=== PATIENT | male | born 1945 | race Hispanic/Latino ===

== ENCOUNTER 2018-07-20 09:42 | Outpatient (CLI) | payer MEDICARE | END 2018-07-20 09:43 | disposition home or self-care (01) | LOC: RAD 09:42 ==

== ENCOUNTER 2018-08-16 10:42 | Outpatient (CLI) | payer MEDICARE | END 2018-08-16 10:43 | disposition home or self-care (01) | LOC: LAB 10:42 ==

== ENCOUNTER 2018-09-29 13:58 | Inpatient (IN) | payer MEDICARE ==
--- NOTE | 2018-09-29 14:58 | ED PDOC ---
Arrival/HPI - General Chief Complaint: Wound Check Time Seen by Provider: 09/29/18 14:37 Historian: Patient - History of Present Illness Narrative History of Present Illness (Text): 09/29/18 14:55 A 73 year old male, whose past medical history includes diabetes and hypothyroidism, presents to the emergency department for further evaluation of right heel ulcer. patient was advised by his healthcare science specialist to come into the emergency department for further evaluation of the foot ulcer and more aggressive antibiotic treatment. Patient notes that he was able to ambulate into the emergency department today. He denies fevers, chills, headache, dizziness, chest pain, shortness of breath, dyspnea on exertion, cough, abdominal pain, nausea, vomiting, diarrhea, back pain, neck pain, urinary/bowel changes, or any other complaint. Prime Minister: Dr. Gallo Time/Duration: Other (Today) Symptom Onset: Gradual Symptom Course: Unchanged Activities at Onset: Rest, Light Context: Home Past Medical History - Provider Review Nursing Documentation Reviewed: Yes Primary Care Provider: Edie Gallo - Infectious Disease Hx of Infectious Diseases: None - Tetanus Immunization Tetanus Immunization: Unknown - Cardiac Hx Pacemaker: No - Pulmonary Hx Bronchitis: Yes - Neurological Hx Paralysis: No - HEENT Hx Cataracts: Yes - Endocrine/Metabolic Hx Hyperthyroidism: Yes - Hematological/Oncological Hx Blood Transfusions: No - Musculoskeletal/Rheumatological Hx Musculoskeletal Disorders: Yes - Gastrointestinal Hx Gastrointestinal Disorders: No - Genitourinary/Gynecological Hx Genitourinary Disorders: No - Psychiatric Hx Depression: No Hx Emotional Abuse: No Hx Physical Abuse: No Hx Substance Use: No - Surgical History Hx Cataract Extraction: Yes Other/Comment: right heel sx- removal of calcium spur - Anesthesia Hx Anesthesia: Yes Hx Anesthesia Reactions: No Hx Malignant Hyperthermia: No - Suicidal Assessment Feels Threatened In Home Enviroment: No Family/Social History - Physician Review Nursing Documentation Reviewed: Yes Family/Social History: No Known Family HX Smoking Status: Never Smoked Hx Alcohol Use: No Hx Substance Use: No Hx Substance Use Treatment: No Allergies/Home Meds Allergies/Adverse Reactions: Allergies No Known Allergies Allergy (Verified 09/29/18 14:31) Home Medications: Home Meds Medication Instructions Recorded Confirmed Glyburide/Metformin HCl 1 tab PO BID 01/06/12 09/29/18 [Glyburide/Metformin 5 mg-500 mg] Levothyroxine Sodium 0.075 mg PO DAILY 01/06/12 09/29/18 [Levothyroxine] Review of Systems - Physician Review All systems were reviewed & negative as marked: Yes - Review of Systems Constitutional: absent: Fevers, Night Sweats Respiratory: absent: SOB, Cough Cardiovascular: absent: Chest Pain, WHITE Gastrointestinal: absent: Abdominal Pain, Stool Changes, Diarrhea, Nausea, Vomi ting Genitourinary Male: absent: Urinary Output Changes Musculoskeletal: absent: Back Pain, Neck Pain Skin: Other (Right heel ulcer) Neurological: absent: Headache, Dizziness Physical Exam Vital Signs Reviewed: Yes Vital Signs Temp Pulse Resp BP Pulse Ox 09/29/18 14:26 98.3 F 81 18 165/89 H 98 Temperature: Afebrile Blood Pressure: Hypertensive Pulse: Regular Respiratory Rate: Normal Appearance: Positive for: Well-Appearing, Non-Toxic, Comfortable Pain Distress: None Mental Status: Positive for: Alert and Oriented X 3 Medical Decision Making ED Course and Treatment: 09/29/18 14:57 Impression: A 73 year old male presents to the emergency department for further evaluation of right foot ulcer and more agressive antibiotics, advised by Dr. Gallo to come in for evaluation. Plan: -- Right Ankle X-Ray -- Blood Culture -- Labs -- Vancomycin -- Reassess and disposition Prior Visits: Notes and results from previous visits were reviewed. Progress Notes: 09/29/18 15:25: Discussed case with someone in Dr. Gallo's office who state patient can be admitted to her service. Will admit once X- ray and Labs are back. 09/29/18 18:07 Right Foot X-Ray shows: IMPRESSION: No radiographic evidence of acute osteomyelitis. 09/29/18 19:04 Spoke to Resident and Dr. Carson and resident, who will come to evaluate patient. - Lab Interpretations I have reviewed the lab results: Yes - RAD Interpretation Diesel Machinist: Radiologist - Scribe Statement The provider has reviewed the documentation as recorded by the Ac Redd Provider Scribe Attestation: All medical record entries made by the Scribe were at my direction and personally dictated by me. I have reviewed the chart and agree that the record accurately reflects my personal performance of the history, physical exam, medical decision making, and the department course for this patient. I have also personally directed, reviewed, and agree with the discharge instructions and disposition. Disposition/Present on Arrival - Present on Arrival Any Indicators Present on Arrival: No History of DVT/PE: No History of Uncontrolled Diabetes: No Urinary Catheter: No History of Decub. Ulcer: No History Surgical Site Infection Following: None - Disposition Have Diagnosis and Disposition been Completed?: Yes Diagnosis: Heel ulcer, Cellulitis Disposition: HOSPITALIZED Disposition Time: 17:27 Patient Plan: Admission Condition: FAIR
[2018-09-29] MEDS ORDERED: Vancomycin 500 mg Inj IVPB ONE (15:03)
[2018-09-29] MEDS ORDERED: Vancomycin 1.5 GM in Sodium Chloride 0.9% 500 ML IVPB ONE (15:15)
[2018-09-29 15:40] LABS: BASO # 0.04 K/mm3 (0.0-2.0); BASO % 0.6 % (0.0-3.0); EOS # 0.1 (0.0-0.7); HEMOGLOBIN 13.3 g/dL (14.0-18.0); LYMPH # 1.5 (1.2-3.4); LYMPH % 22.6 % (22.0-35.0); MEAN CELL VOLUME 88.6 fl (80.0-105.0); MEAN CORPUSCULAR HEMOGLOBIN 29.8 pg (25.0-35.0); MEAN CORPUSCULAR HGB CONC 33.7 g/dl (31.0-37.0); MEAN PLATELET VOLUME 9.4 fl (7.0-11.0); MONO # 0.5 (0.1-0.6); MONO % 7.5 % (1.0-6.0); RBC 4.46 10^6/uL (3.5-6.1); WHITE BLOOD COUNT 6.6 10^3/uL (4.5-11.0)
[2018-09-29 16:02] LABS: ALB/GLOB RATIO 1.2 (1.1-1.8); ALBUMIN 4.1 g/dL (3.0-4.8); ALT/SGPT 24 U/L (7-56); AST/SGOT 19 U/L (17-59); BLOOD UREA NITROGEN 18 mg/dL (7-21); CALCIUM 9.2 mg/dL (8.4-10.5); GFR NON-AFRICAN AMERICAN > 60
[2018-09-29] MEDS ORDERED: Sodium Chloride 0.9% 1,000 ML IV STA (17:27)
--- NOTE | 2018-09-29 18:11 | RAD ---
Date of service: 09/29/2018 PROCEDURE: Right Foot Radiographs. HISTORY: r/o osteo COMPARISON: None. TECHNIQUE: 3 views obtained. FINDINGS: BONES: Normal. No fracture. JOINTS: Normal. SOFT TISSUES: Soft tissue swelling/lower extremity edema. OTHER FINDINGS: None. IMPRESSION: No radiographic evidence of acute osteomyelitis.
--- NOTE | 2018-09-29 20:34 | CP.PCM.HP ---
<Emanuel Blue - Last Filed: 09/29/18 20:38> History of Present Illness - History of Present Illness History of Present Illness: 73 year old male with past medical history of hypothyroidism, DM2, and PVD presents to the hospital after being sent in by podiatry. Patient states he has had right heel ulcer for the past several months. Patient has been following with Dr. Gallo, who recommended patient come into the hospital for further wound care and antibiotics. Patient states there has been discharge from his wound. Patient also admits to numbness and tingling in his right foot. Patient states he is compliant with his medications. Patient previously had foot MRI several months ago which demonstrated possible bone bruise/fracture with less likely chance of osteomylelitis. Patient denies chest pain, shortness of breath, nausea, vomiting, diarrhea, fever, chills. Medical Hx: hypothyroidism, DM2, and PVD Surgical Hx: B/l cataracts, pilonidal cyst, ventral hernia repair Family Hx: CAD, DM, Multiple malignancies (unaware of specifics) Social Hx: Denies tobacco, alcohol, or illicit drug use. Uses a cane for ambulation. Medications: Glyburide/Metformin, Levothyroxine Allergies: NKDA PMD: [place] Present on Admission - Present on Admission Any Indicators Present on Admission: No Review of Systems - Review of Systems Review of Systems: 12 point ROS as per HPI, otherwise negative Past Patient History - Infectious Disease Hx of Infectious Diseases: None - Tetanus Immunizations Tetanus Immunization: Unknown - Past Social History Smoking Status: Never Smoked - CARDIAC Hx Pacemaker: No - PULMONARY Hx Bronchitis: Yes - NEUROLOGICAL Hx Paralysis: No - HEENT Hx Cataracts: Yes - ENDOCRINE/METABOLIC Hx Hyperthyroidism: Yes - HEMATOLOGICAL/ONCOLOGICAL Hx Blood Transfusions: No - MUSCULOSKELETAL/RHEUMATOLOGICAL Hx Musculoskeletal Disorders: Yes - GASTROINTESTINAL Hx Gastrointestinal Disorders: No - GENITOURINARY/GYNECOLOGICAL Hx Genitourinary Disorders: No - PSYCHIATRIC Hx Depression: No Hx Emotional Abuse: No Hx Physical Abuse: No Hx Substance Use: No - SURGICAL HISTORY Hx Cataract Extraction: Yes Other/Comment: right heel sx- removal of calcium spur - ANESTHESIA Hx Anesthesia: Yes Hx Anesthesia Reactions: No Hx Malignant Hyperthermia: No Meds Allergies/Adverse Reactions: Allergies Allergy/AdvReac Type Severity Reaction Status Date / Time No Known Allergies Allergy Verified 09/29/18 14:31 Physical Exam - Constitutional Appears: Non-toxic, No Acute Distress - Head Exam Head Exam: ATRAUMATIC, NORMAL INSPECTION, NORMOCEPHALIC - Eye Exam Eye Exam: EOMI, Normal appearance - ENT Exam ENT Exam: Mucous Membranes Moist, Normal Exam - Respiratory Exam Respiratory Exam: Clear to Auscultation Bilateral, NORMAL BREATHING PATTERN. absent: Rales, Rhonchi, Wheezes - Cardiovascular Exam Cardiovascular Exam: RRR, +S1, +S2 - GI/Abdominal Exam GI & Abdominal Exam: Normal Bowel Sounds, Soft. absent: Tenderness - Extremities Exam Extremities exam: Negative for: calf tenderness, pedal edema Additional comments: Right foot heel ulcer. Draining pus. Bandaged. - Neurological Exam Neurological exam: Alert, CN II-XII Intact, Oriented x3 - Psychiatric Exam Psychiatric exam: Normal Affect, Normal Mood - Skin Skin Exam: Dry, Normal Color, Warm Results - Vital Signs Recent Vital Signs: Last Vital Signs Temp 98.3 F 09/29/18 18:15 Pulse 68 09/29/18 18:15 Resp 18 09/29/18 18:15 BP 158/64 H 09/29/18 18:15 Pulse Ox 100 09/29/18 18:15 - Labs Result Diagrams: 09/29/18 15:30 09/29/18 15:30 Labs: Laboratory Results - last 24 hr 09/29/18 09/29/18 15:30 15:30 WBC 6.6 RBC 4.46 Hgb 13.3 L Hct 39.5 L MCV 88.6 MCH 29.8 MCHC 33.7 RDW 13.0 Plt Count 295 MPV 9.4 Neut % (Auto) 67.3 Lymph % (Auto) 22.6 [place] % (Auto) 7.5 H Eos % (Auto) 2.0 Baso % (Auto) 0.6 Lymph # (Auto) 1.5 [place] # (Auto) 0.5 Eos # (Auto) 0.1 Baso # (Auto) 0.04 Absolute Neuts (auto) 4.42 Sodium 136 Potassium 5.0 Chloride 100 Carbon Dioxide 22 Anion Gap 19 BUN 18 Creatinine 0.8 Est GFR ( Amer) > 60 Est GFR (Non-Af Amer) > 60 Random Glucose 318 H* Calcium 9.2 Total Bilirubin 0.6 AST 19 ALT 24 Alkaline Phosphatase 142 H Total Protein 7.6 Albumin 4.1 Globulin 3.4 Albumin/Globulin Ratio 1.2 Assessment & Plan - Assessment and Plan (Free Text) Plan: 73 year old male with past medical history of hypothyroidism, DM2, and PVD presents to the hospital with right diabetic heel ulcer. Foot X-ray negative for any acute process. Patient will be evaluated by ID and Podiatry. 1. Right diabetic foot ulcer Vancomycin and Zosyn Foot culture pending Blood culture pending Podiatry consulted, Dr. Gallo ID consulted, Dr. Mcwilliams Physical therapy ordered Fall risk 2. DM2 Home medications stopped, will start ISS HgA1c ordered 3. Hypothyroidism Continue Levothyroxine 4. Prophylaxis SCDs Protonix Su, PGY-3 <Boaz Carson - Last Filed: 09/30/18 19:46> Results - Vital Signs Recent Vital Signs: Last Vital Signs Temp 98.3 F 09/30/18 14:00 Pulse 74 09/30/18 14:00 Resp 20 09/30/18 14:00 BP 152/82 H 09/30/18 14:00 Pulse Ox 98 09/30/18 14:00 - Labs Result Diagrams: 09/29/18 15:30 09/29/18 15:30 Labs: Laboratory Results - last 24 hr 09/29/18 09/29/18 09/30/18 20:46 22:40 06:44 POC Glucose (mg/dL) 344 H 270 H Hemoglobin A1c 12.5 H 09/30/18 09/30/18 11:04 16:18 POC Glucose (mg/dL) 350 H 322 H Hemoglobin A1c Attending/Attestation - Attestation I have personally seen and examined this patient.: Yes I have fully participated in the care of the patient.: Yes I have reviewed all pertinent clinical information: Yes Notes (Text): 09/30/18 19:44 Seen and examined. Discussed with resident. Ulcer started 2 years ago after pt. had I&D for bone spur. Ulcer is slightly bigger than a quarter with slight pus. Wound CX obtained and rewrapped with clean dressing.
[2018-09-29] MEDS: Insulin Reg-MEDIUM-Coverage SC SCH (21:41)
[2018-09-29] MEDS: Piperacillin/Tazobact 3.375 gm 100 ML IVPB SCH (21:42)
[2018-09-29] MEDS ORDERED: Insulin Regular 1 UNITS/0.01 ML ML ONE (21:45)
[2018-09-30 00:09] VITALS: BMI 28.5
[2018-09-30] MEDS: Pantoprazole 40 mg EC Tab PO SCH (05:25)
[2018-09-30] MEDS: Piperacillin/Tazobact 3.375 gm 100 ML IVPB SCH (05:25)
[2018-09-30] MEDS ORDERED: Vancomycin 1gm in NS 250ml 1 GM/250 ML BAG IVPB SCH (08:00)
[2018-09-30] MEDS: Levothyroxine 75 MCG TAB PO SCH (08:30)
[2018-09-30] MEDS: Insulin Reg-MEDIUM-Coverage SC SCH ×4 (08:30→22:08)
--- NOTE | 2018-09-30 10:10 | CON ---
DATE OF CONSULTATION: 09/30/2018 The patient is seen in 569, bed 1. CHIEF COMPLAINT: Foot infection times several days. HISTORY OF PRESENT ILLNESS: This is a 73-year-old male with past medical history hypothyroidism, diabetes mellitus, peripheral vascular disease, history of bilateral cataracts, who was admitted with a right heel ulcer times several weeks, comes to the hospital for further antibiotics and wound care. The patient denies any fevers, any chills, any nausea or vomiting. PAST MEDICAL HISTORY: Significant for diabetes mellitus, hypothyroidism, peripheral vascular disease, cataracts. PAST SURGICAL HISTORY: Significant for cataract surgery. ALLERGIES: THE PATIENT HAS NO KNOWN ALLERGIES. MEDICATIONS AT HOME: Include levothyroxine and glyburide. PHYSICAL EXAMINATION: GENERAL: The patient is in bed, in no acute distress. VITAL SIGNS: Temperature of 98, blood pressure is 165/80, respiratory rate of 18, heart rate of 81. HEENT: Examination of HEENT is unremarkable. NECK: Supple. LUNGS: Have decreased breath sounds. HEART: Normal S1, S2. ABDOMEN: Soft. EXTREMITIES: Examination of the leg, the patient preferred to wait where the Podiatry take the dressing off. We will await for Podiatry for examination of the leg. LABORATORY DATA: Laboratory examination reveals a white count of 6, hemoglobin of 13, platelets of 295. Chemistries are noted. Blood sugar is elevated. Cultures are pending. The patient has had x-ray of the foot, which showed no fracture and no evidence of osteo. ASSESSMENT AND PLAN: A 73-year-old male, who is diabetic, hypothyroidism, cataract, peripheral vascular disease, admitted with a right heel ulcer, no systemic symptoms at this point. We will hold off any antibiotics pending discussion with the Podiatry and an examination whether the patient's Podiatry plans to do debridement. The patient is not systemically ill, we will hold off antibiotics pending Podiatry evaluation and possible debridement, blood cultures, and wound cultures. May consider an MRI. We will order a sed rate, C-reactive protein, must rule out underlying osteomyelitis and underlying peripheral vascular disease. Should have arterial Dopplers to evaluate the patient's arterial supply. Review of the outpatient records, the patient had an MRI approximately [id number] months ago on 07/20/2018. It is unlikely osteomyelitis that was in the right foot at that time and had an EVELINE and evaluation in 2018, mildly abnormal EVELINE. We will repeat the Dopplers of lower extremities bilaterally to rule out peripheral arterial disease. We will follow with you. Brandon Mcwilliams MD
--- NOTE | 2018-09-30 10:38 | CP.PCM.PN ---
<Tasia Corrigan - Last Filed: 09/30/18 10:27> Subjective - Date & Time of Evaluation Date of Evaluation: 09/30/18 Time of Evaluation: 11:15 - Subjective Subjective: Tasia Corrigan Y1 [facility] Progress Note for Medicine Patient seen and examined at bedside this morning. No acute events reported overnight. Patient refusing blood work at this time. Admits to right sided foot pain that is improved from yesterday. Denies CP, SOB, numbness, tingling, urinary complaints and fevers. Plan for OR debridement on Tuesday. Objective - Vital Signs/Intake and Output Vital Signs (last 24 hours): Temp Pulse Resp BP Pulse Ox 97.8 F 71 18 151/64 H 100 09/29/18 21:24 09/29/18 21:24 09/29/18 23:41 09/29/18 21:24 09/29/18 21:24 - Medications Medications: Current Medications Acetaminophen (Tylenol 325mg Tab) 650 mg PO Q4H PRN PRN Reason: Pain, Mild (1-3) Insulin Detemir (Levemir) 8 unit SC [facility] Insulin Human Regular (Humulin R Med) 0 units SC [facility]; Protocol Last Admin: 09/30/18 08:30 Dose: 5 unit Levothyroxine Sodium (Synthroid) 75 mcg PO ACB [facility] Last Admin: 09/30/18 08:30 Dose: 75 mcg Ondansetron HCl (Zofran Inj) 4 mg IVP Q4H PRN PRN Reason: Nausea/Vomiting Pantoprazole Sodium (Protonix Ec Tab) 40 mg PO 0600 [facility] Last Admin: 09/30/18 05:25 Dose: 40 mg - Labs Labs: 09/29/18 15:30 09/29/18 15:30 Physical Exam - Constitutional Appears: Non-toxic, No Acute Distress - Head Exam Head Exam: ATRAUMATIC, NORMAL INSPECTION, NORMOCEPHALIC - Eye Exam Eye Exam: EOMI, Normal appearance - ENT Exam ENT Exam: Mucous Membranes Moist, Normal Exam - Respiratory Exam Respiratory Exam: Clear to Auscultation Bilateral, NORMAL BREATHING PATTERN. absent: Rales, Rhonchi, Wheezes - Cardiovascular Exam Cardiovascular Exam: RRR, +S1, +S2, no tachycardia noted - GI/Abdominal Exam GI & Abdominal Exam: Normal Bowel Sounds, Soft. absent: Tenderness - Extremities Exam Extremities exam: Negative for: calf tenderness, pedal edema. DP palpable B/L Additional comments: Right foot heel ulcer noted, no draining or pus drainage appreciated - Neurological Exam Neurological exam: Alert, CN II-XII Intact, Oriented x3 - Psychiatric Exam Psychiatric exam: Normal Affect, Normal Mood - Skin Skin Exam: Dry, Normal Color, Warm Assessment and Plan - Assessment and Plan (Free Text) Assessment: 73 year old male with past medical history of hypothyroidism, DM2, and PVD presents to the hospital with right diabetic heel ulcer. Foot X-ray negative for any acute process. Plan for OR debridement on Tuesday. Plan: Right diabetic foot ulcer -monitor off of antibiotics as per ID -afebrile, no WBC noted -Foot X-ray shows no evidence for osteomyelitis -plan for OR debridement on Tuesday -blood culture, wound culture pending -Podiatry consulted, Dr. Gallo -ID consulted, Dr. Mcwilliams -Physical therapy ordered -Fall risk ordered Hx of DM2 -insulin ISS -levemir 8 units HS -HgA1c pending Hx of Hypothyroidism -Continue Levothyroxine 75mcg PPX -SCDs -Protonix -HHD Patient seen and case discussed with attending, Dr. Wild <Jerry Wild - Last Filed: 09/30/18 15:15> Objective - Vital Signs/Intake and Output Vital Signs (last 24 hours): Temp Pulse Resp BP Pulse Ox 98.3 F 74 20 152/82 H 98 09/30/18 14:00 09/30/18 14:00 09/30/18 14:00 09/30/18 14:00 09/30/18 14:00 - Medications Medications: Current Medications Acetaminophen (Tylenol 325mg Tab) 650 mg PO Q4H PRN PRN Reason: Pain, Mild (1-3) Insulin Detemir (Levemir) 8 unit SC [facility] Insulin Human Regular (Humulin R Med) 0 units SC [facility]; Protocol Last Admin: 09/30/18 11:47 Dose: 8 unit Levothyroxine Sodium (Synthroid) 75 mcg PO ACB [facility] Last Admin: 09/30/18 08:30 Dose: 75 mcg Ondansetron HCl (Zofran Inj) 4 mg IVP Q4H PRN PRN Reason: Nausea/Vomiting Pantoprazole Sodium (Protonix Ec Tab) 40 mg PO 0600 [facility] Last Admin: 09/30/18 05:25 Dose: 40 mg - Labs Labs: 09/29/18 15:30 09/29/18 15:30 Attending/Attestation - Attestation I have personally seen and examined this patient.: Yes I have fully participated in the care of the patient.: Yes I have reviewed all pertinent clinical information, including history, physical exam and plan: Yes Notes (Text): 09/30/18 15:12 Medical record note made by the resident after discussion with my direction and input after the patient was personally seen and examined by me. I have reviewed the chart and agree that the record accurately reflects by personal performance of the history, physical exam, data review, and medical decision-making, in the course for the patient. I have also personally directed the plan of care. 73 year old male with past medical history of hypothyroidism, DM2, and PVD presents to the hospital with right diabetic heel ulcer. Foot X-ray negative for any acute process. He is scheduled for OR debridement on Tuesday.Case was discussed with ID. Antibiotics has been discontinued, will follow up deep cultures after surgery.
--- NOTE | 2018-09-30 14:09 | CON ---
DATE: 09/30/2018 HISTORY OF PRESENT ILLNESS: This is a 73-year-old diabetic male seen at bedside for consultation evaluation and management of a chronic, nonhealing, right heel ulceration. The patient states that the ulcer has been there on and off for the past two years. The patient was complaining of pain in the area and excessive drainage and was advised by Dr. Gallo to come to the hospital for further evaluation and antibiotics. PAST MEDICAL HISTORY: The patient's medical history is significant for longstanding diabetes with peripheral neuropathy, peripheral vascular disease, hypothyroidism, and cataracts. SURGICAL HISTORY: Past surgical history is significant for cataract surgery. HOME MEDICATIONS: Include glyburide/metformin 5/500 and Synthroid. ALLERGIES: THE PATIENT HAS NO KNOWN DRUG ALLERGIES. The patient has no implantable cardiac devices. FAMILY HISTORY: Significant for diabetes and cardiac disease. SOCIAL HISTORY: The patient denies illicit drug use. Does not use tobacco products and denies alcohol abuse. X-rays taken revealed no radiographic evidence of osteomyelitis at the right plantar heel at this time. VITAL SIGNS: Revealed a temperature of 97.8, pulse rate of 71, blood pressure 151/64, and a respiratory rate of 18. LABORATORY FINDINGS: Reveal a white count of 6.6, hemoglobin of 13.3, hematocrit of 39.5, platelet count of 295. There is no microbiology report noted in MAR at this time. OBJECTIVE: Nonpalpable posterior tibial pulse and weakly palpable dorsalis pedis pulse noted bilaterally. Lower extremity skin presents thin, shiny, discolored bilaterally. Capillary filling time is slightly delayed x10. The patient is unable to detect 5.07 g monofilament wire testing bilaterally. Temperature gradient is [id number]. There is no appreciable lower extremity edema at this time. There is a full-thickness ulceration located on the plantar right heel. The base of the ulceration is primarily granular with some fibrotic tissue along the periphery. The area surrounding the wound presents slightly macerated, edematous, and erythematous; ulceration measures approximately 1 x 1.5 cm x 1.2 cm x 0.4 cm. There is noted to be serosanguineous drainage. There is no purulence. There are no signs of underlying abscess formation at this time. The wound does not probe to bone at this time. There is noted to be no malodor and no active purulent drainage. ASSESSMENT: Full-thickness, nonhealing, right diabetic heel ulceration. PLAN: The patient was examined, the wound was cultured and submitted for sensitivities. Wound was cleansed with normal sterile saline and application of calcium alginate with silver, sterile 4x4 gauze, abdominal pad, and a dry sterile dressing was applied. X-rays were reviewed. No evidence of osteomyelitis, but given the depth of the wound, an MRI is warranted to rule out possible osteomyelitis; possible early osteomyelitis not picked up radiographically. Dr. Mcwilliams's note was read and appreciated. We will await culture and sensitivity results and prescribe antibiotics accordingly. We will order a boot to offload his heel at all times when in bed and we will order a surgical shoe for ambulation. We will keep him nonweightbearing at this time. The patient will be seen and followed daily. Wellington Urban DPM
[2018-09-30] MEDS ORDERED: Insulin Detemir 100 units/ml Vial (Levemir) SC SCH (22:00)
[2018-10-01] MEDS: Pantoprazole 40 mg EC Tab PO SCH (05:26)
[2018-10-01] MEDS: Levothyroxine 75 MCG TAB PO SCH (08:42)
[2018-10-01] MEDS: Insulin Reg-MEDIUM-Coverage SC SCH ×5 (08:42→21:53)
--- NOTE | 2018-10-01 11:53 | CP.PCM.PN ---
<Tasia Corrigan - Last Filed: 10/01/18 11:48> Subjective - Date & Time of Evaluation Date of Evaluation: 10/01/18 Time of Evaluation: 09:15 - Subjective Subjective: Tasia Corrigan Y1 [facility] Progress Note for Medicine Patient seen and examined at bedside this morning. No acute events reported overnight. Patient continuing to refuse blood work at this time. Denies fevers, CP, SOB, numbness, tingling, and urinary complaints. Plan for OR debridement on Tuesday. Objective - Vital Signs/Intake and Output Vital Signs (last 24 hours): Temp Pulse Resp BP Pulse Ox 98.3 F 85 18 143/83 99 09/30/18 14:00 09/30/18 22:35 09/30/18 22:35 09/30/18 22:35 09/30/18 22:35 Intake and Output: 10/01/18 10/01/18 06:59 18:59 Intake Total 0 Balance 0 - Medications Medications: Current Medications Acetaminophen (Tylenol 325mg Tab) 650 mg PO Q4H PRN PRN Reason: Pain, Mild (1-3) Insulin Detemir (Levemir) 8 unit SC HS [facility] Last Admin: 09/30/18 22:08 Dose: 8 units Insulin Human Regular (Humulin R Med) 0 units SC [facility]; Protocol Last Admin: 10/01/18 08:42 Dose: 3 unit Levothyroxine Sodium (Synthroid) 75 mcg PO ACB [facility] Last Admin: 10/01/18 08:42 Dose: 75 mcg Ondansetron HCl (Zofran Inj) 4 mg IVP Q4H PRN PRN Reason: Nausea/Vomiting Pantoprazole Sodium (Protonix Ec Tab) 40 mg PO 0600 [facility] Last Admin: 10/01/18 05:26 Dose: 40 mg - Labs Labs: 09/29/18 15:30 09/29/18 15:30 Physical Exam - Constitutional Appears: Non-toxic, No Acute Distress - Head Exam Head Exam: ATRAUMATIC, NORMAL INSPECTION, NORMOCEPHALIC - Eye Exam Eye Exam: EOMI, Normal appearance - ENT Exam ENT Exam: Mucous Membranes Moist, Normal Exam - Respiratory Exam Respiratory Exam: Clear to Auscultation Bilateral, NORMAL BREATHING PATTERN. absent: Rales, Rhonchi, Wheezes - Cardiovascular Exam Cardiovascular Exam: RRR, +S1, +S2, no tachycardia noted - GI/Abdominal Exam GI & Abdominal Exam: Normal Bowel Sounds, Soft. absent: Tenderness - Extremities Exam Extremities exam: Negative for: calf tenderness, pedal edema. DP palpable B/L Additional comments: Right foot heel ulcer noted, no draining or pus drainage appreciated - Neurological Exam Neurological exam: Alert, CN II-XII Intact, Oriented x3 - Psychiatric Exam Psychiatric exam: Normal Affect, Normal Mood - Skin Skin Exam: Dry, Normal Color, Warm Assessment and Plan - Assessment and Plan (Free Text) Assessment: 73 year old male with past medical history of hypothyroidism, DM2, and PVD presents to the hospital with right diabetic heel ulcer. Foot X-ray negative for any acute process. Plan for OR debridement on Tuesday. Plan: Right diabetic foot ulcer -afebrile, no previous WBC noted -LE MRI done today, final read pending -monitor off of antibiotics as per ID -Foot X-ray shows no evidence for osteomyelitis -plan for OR debridement on Tuesday -blood culture shows no growth for 24 hours -wound culture pending -Podiatry consulted, Dr. Gallo -offloading boot ordered by podiatry -ID consulted, Dr. Mcwilliams -Physical therapy ordered -Fall risk ordered Hx of DM2 -insulin ISS -levemir 8 units HS -HgA1c pending Hx of Hypothyroidism -Continue Levothyroxine 75mcg PPX -SCDs -Protonix -HHD Patient seen and case discussed with attending, Dr. Wild <Jerry Wild - Last Filed: 10/01/18 13:00> Objective - Vital Signs/Intake and Output Vital Signs (last 24 hours): Temp Pulse Resp BP Pulse Ox 98.3 F 85 18 143/83 99 09/30/18 14:00 09/30/18 22:35 09/30/18 22:35 09/30/18 22:35 09/30/18 22:35 Intake and Output: 10/01/18 10/01/18 06:59 18:59 Intake Total 0 Balance 0 - Medications Medications: Current Medications Acetaminophen (Tylenol 325mg Tab) 650 mg PO Q4H PRN PRN Reason: Pain, Mild (1-3) Insulin Detemir (Levemir) 8 unit SC HS [facility] Last Admin: 09/30/18 22:08 Dose: 8 units Insulin Human Regular (Humulin R Med) 0 units SC [facility]; Protocol Last Admin: 10/01/18 12:24 Dose: 8 unit Levothyroxine Sodium (Synthroid) 75 mcg PO ACB [facility] Last Admin: 10/01/18 08:42 Dose: 75 mcg Ondansetron HCl (Zofran Inj) 4 mg IVP Q4H PRN PRN Reason: Nausea/Vomiting Pantoprazole Sodium (Protonix Ec Tab) 40 mg PO 0600 [facility] Last Admin: 10/01/18 05:26 Dose: 40 mg - Labs Labs: 09/29/18 15:30 09/29/18 15:30 Attending/Attestation - Attestation I have personally seen and examined this patient.: Yes I have fully participated in the care of the patient.: Yes I have reviewed all pertinent clinical information, including history, physical exam and plan: Yes Notes (Text): 10/01/18 12:58 Patient is not cooperative with his physical examination. 73 year old male with past medical history of hypothyroidism, DM2, and PVD presents to the hospital with right diabetic heel ulcer. Foot X-ray negative for any acute process.Podiatry evaluation was noted.Patient MRI results are pending. He is scheduled for OR debridement on Tuesday.Case was discussed with ID. Antibiotics has been discontinued, we will follow up deep cultures after s na. Management plan was discussed in detail with patient. Education was provided.
--- NOTE | 2018-10-01 13:12 | MRI ---
Date of service: 10/01/2018 PROCEDURE: MRI of the right ankle without contrast HISTORY: Diabetic heel ulcer COMPARISON: TECHNIQUE: MRI of the right ankle was performed in multiple planes using multiple pulse sequences. FINDINGS: There is an area of marrow edema on the lateral aspect of the posterior calcaneus. This is suspicious for osteomyelitis. However there is no obvious cortical destruction. The marrow edema could represent a bone bruise or stress response. The area of marrow edema is not contiguous with the ulcer on the plantar aspect of the foot. The Achilles tendon and plantar fascia are unremarkable. The ankle tendons and ligaments are intact. IMPRESSION: There is an area of marrow edema on the lateral aspect of the posterior calcaneus. This is suspicious for osteomyelitis. However there is no obvious cortical destruction. The marrow edema could represent a bone bruise or stress response.
--- NOTE | 2018-10-01 14:08 | PN ---
DATE: 10/01/2018 SUBJECTIVE: The patient is seen earlier today. He is awake and alert. No fevers, no chills. PHYSICAL EXAMINATION: VITAL SIGNS: Temperature is 98, blood pressure is 140/80, respiratory of 18. HEENT: Unremarkable. NECK: Supple. LUNGS: Have decreased breath sounds. HEART: Normal S1 and S2. ABDOMEN: Soft. LABORATORY DATA: Reveals a white count of 6, hemoglobin of 13. Microbiology, the foot cultures are pending, superficial foot cultures; the blood cultures are no growth. Review of orders reveals the patient to be off of antibiotics. Dr. consultation is reviewed. The patient states the patient has a full-thickness nonhealing right diabetic heel ulceration. I have seen, on exam, the foot examination with yesterday. ASSESSMENT AND PLAN: A 73-year-old, who is diabetic, hypothyroidism, cataract, peripheral vascular, was admitted with a chronic right heel ulcer. We will hold off antibiotics. Podiatry will be doing debridement and with deep tissue cultures. Pending that, we will discuss again with Podiatry. MRI is pending. The arterial Dopplers are pending; and off of antibiotics. Brandon Mcwilliams MD
[2018-10-01] MEDS: Insulin Detemir 100 units/ml Vial (Levemir) SC SCH (21:53)
--- NOTE | 2018-10-02 07:38 | CP.PCM.PCO ---
Addendum Addendum: 10/02/18 07:36 Patient plan for OR tomorrow morning at 7:[address] Gallo for I&D of right foot NPO after midnight
[2018-10-02] MEDS: Levothyroxine 75 MCG TAB PO SCH (07:58)
[2018-10-02] MEDS: Insulin Reg-MEDIUM-Coverage SC SCH ×4 (07:58→21:16)
--- NOTE | 2018-10-02 10:46 | CP.PCM.PN ---
Subjective - Date & Time of Evaluation Date of Evaluation: 10/02/18 Time of Evaluation: 10:45 - Subjective Subjective: Podiatry Progress Note: Dr. Gallo 73M patient seen and examined at bedside this AM for R heel ulceration. Patient is resting comfortably and in NAD. He denies any pain to the R lower extremity at this time. Patient aware of plan for OR tomorrow morning for wound debridement and bone biopsy. Denies nausea/vomiting/fever/shortness of breath. Objective - Vital Signs/Intake and Output Vital Signs (last 24 hours): Temp Pulse Resp BP Pulse Ox 98.4 F 65 18 150/72 97 10/01/18 22:09 10/01/18 22:09 10/01/18 22:09 10/01/18 22:09 10/01/18 22:09 Intake and Output: 10/02/18 10/02/18 06:59 18:59 Intake Total 620 Balance 620 - Medications Medications: Current Medications Acetaminophen (Tylenol 325mg Tab) 650 mg PO Q4H PRN PRN Reason: Pain, Mild (1-3) Cadexomer Iodine (Iodosorb) 0 gm TOP DAILY [facility] Insulin Detemir (Levemir) 12 unit SC HS [facility] Last Admin: 10/01/18 21:53 Dose: 12 units Insulin Human Regular (Humulin R Med) [address] [facility]; Protocol Last Admin: 10/02/18 07:58 Dose: 7 unit Levothyroxine Sodium (Synthroid) 75 mcg PO ACB [facility] Last Admin: 10/02/18 07:58 Dose: 75 mcg Ondansetron HCl (Zofran Inj) 4 mg IVP Q4H PRN PRN Reason: Nausea/Vomiting Pantoprazole Sodium (Protonix Ec Tab) 40 mg PO 0600 [facility] Last Admin: 10/01/18 05:26 Dose: 40 mg - Labs Labs: 09/29/18 15:30 09/29/18 15:30 - Constitutional Appears: Non-toxic, No Acute Distress - Head Exam Head Exam: ATRAUMATIC, NORMOCEPHALIC - ENT Exam ENT Exam: Mucous Membranes Moist - Extremities Exam Additional comments: RLE focused exam Vascular: DP/PT palpable, CFT < 3 seconds, TG warm to warm, edema minimal to R heel Ortho: MMT 5/5 Neuro: Gross sensation intact, protective sensation diminished Derm: Ulceration appreciated to R plantar heel measuring approximately 1.5 cm x 1.2 cm x .4 cm. Serous drainage appreciated, no purulence appreciated, no probe to bone at this time, no malodor - Neurological Exam Neurological Exam: Alert, Awake, Oriented x3 - Psychiatric Exam Psychiatric exam: Normal Affect, Normal Mood - Skin Skin Exam: Warm Assessment and Plan - Assessment and Plan (Free Text) Assessment: 73M with R heel ulceration Plan: Patient seen and examined with Dr. Gallo VSS R foot x-ray: no evidence of OM LE MRI: There is an area of marrow edema on the lateral aspect of the posterior calcaneus. This is suspicious for osteomyelitis. However there is no obvious cortical destruction. The marrow edema could represent a bone bruise or stress response. F/U wound culture Weightbear to forefoot in surgical shoe Local wound care: Calcium alginate, DSD Plan for OR tomorrow with Dr. Gallo at 7:45 am for R heel wound debridement with bone biopsy to r/o OM Please medically optimize patient, provide cardiac risk assessment
--- NOTE | 2018-10-02 11:05 | US ---
PROCEDURE: Lower extremity EVELINE exam HISTORY: Peripheral vascular disease with pain and ulceration. Diabetes. PHYSICIAN(S): Rodrick Parson MD. FINDINGS: The resting EVELINE's are normal: right, 1.29and left, 1.28. The left resting EVELINE may be inaccurate due to calcified vessels The brachial systolic pressures are symmetric. The high thigh PVR waveforms are normal and relatively symmetric. The calf PVR waveforms augment normally. No significant gradients are noted across the thighs. The right ankle and metatarsal PVR waveforms are relatively normal. The left ankle and metatarsal waveforms are moderately blunted. This suggests possible left popliteal, trifurcation, and/or tibial disease. IMPRESSION: 1. Normal resting ABIs. The left EVELINE may be inaccurate. 2. Possible left popliteal, trifurcation, and/or tibial disease.
--- NOTE | 2018-10-02 12:56 | CP.PCM.PCO ---
Additional Comments - Additional Comments Additional Comments: Pt seen at bedside. In no acute distress. Currently admitted for R heel ulcer. R ft with dressing c/d/i. Per Podiatry, pt is for I&D and bone biopsy in AM to r/o OM. ID on consult. Will continue to follow. ITS Impressions Foot X-Ray 09/29/18 16:11 IMPRESSION: No radiographic evidence of acute osteomyelitis. Lower Extremity MRI 09/30/18 10:50 IMPRESSION: There is an area of marrow edema on the lateral aspect of the posterior calcaneus. This is suspicious for osteomyelitis. However there is no obvious cortical destruction. The marrow edema could represent a bone bruise or stress response. Extremity Ultrasound 10/02/18 10:59 IMPRESSION: 1. Normal resting ABIs. The left EVELINE may be inaccurate. 2. Possible left popliteal, trifurcation, and/or tibial disease.
--- NOTE | 2018-10-02 13:25 | RAD ---
Date of service: 10/02/2018 HISTORY: Pre-op COMPARISON: No prior. TECHNIQUE: 1 view obtained. FINDINGS: LUNGS: No active pulmonary disease. PLEURA: No significant pleural effusion identified, no pneumothorax apparent. CARDIOVASCULAR: No aortic atherosclerotic calcification present. Normal cardiac size. No pulmonary vascular congestion. OSSEOUS STRUCTURES: No significant abnormalities. VISUALIZED UPPER ABDOMEN: Normal. OTHER FINDINGS: None. IMPRESSION: No active disease.
--- NOTE | 2018-10-02 14:19 | CARD ---
APPROVED REPORT Date of service: 10/02/2018 EKG Measurement Heart [id number] <Conclusion> Sinus rhythm with short DE Left axis deviation Right bundle branch block Voltage criteria for left ventricular hypertrophy Abnormal ECG
--- NOTE | 2018-10-02 15:37 | CP.PCM.PN ---
<Petty Olson - Last Filed: 10/02/18 15:33> Subjective - Date & Time of Evaluation Date of Evaluation: 10/02/18 Time of Evaluation: 15:33 - Subjective Subjective: Petty Olson, PGY-1, Internal Medicine Progress Note for Dr. Stoll Patient seen and evaluated at bedside. Patient had no acute events overnight. Patient reports right foot pain but denies any other acute symptoms at this time. He continues to refuse blood work. 12-point ROS was unremarkable except for what was mentioned above. Objective - Vital Signs/Intake and Output Vital Signs (last 24 hours): Temp Pulse Resp BP Pulse Ox 98.4 F 65 18 150/72 97 10/01/18 22:09 10/01/18 22:09 10/01/18 22:09 10/01/18 22:09 10/01/18 22:09 Intake and Output: 10/02/18 10/02/18 06:59 18:59 Intake Total 620 Balance 620 - Medications Medications: Current Medications Acetaminophen (Tylenol 325mg Tab) 650 mg PO Q4H PRN PRN Reason: Pain, Mild (1-3) Cadexomer Iodine (Iodosorb) 0 gm TOP DAILY [facility] Insulin Detemir (Levemir) 12 unit SC HS [facility] Last Admin: 10/01/18 21:53 Dose: 12 units Insulin Human Regular (Humulin R Med) 0 units SC ACHS [facility]; Protocol Last Admin: 10/02/18 11:50 Dose: 7 unit Levothyroxine Sodium (Synthroid) 75 mcg PO ACB [facility] Last Admin: 10/02/18 07:58 Dose: 75 mcg Ondansetron HCl (Zofran Inj) 4 mg IVP Q4H PRN PRN Reason: Nausea/Vomiting Pantoprazole Sodium (Protonix Ec Tab) 40 mg PO 0600 [facility] Last Admin: 10/01/18 05:26 Dose: 40 mg - Labs Labs: 09/29/18 15:30 09/29/18 15:30 - Constitutional Appears: Well, Non-toxic, No Acute Distress - Head Exam Head Exam: ATRAUMATIC, NORMAL INSPECTION, NORMOCEPHALIC - Eye Exam Eye Exam: EOMI, PERRL - ENT Exam ENT Exam: Mucous Membranes Moist - Neck Exam Neck Exam: Full ROM - Respiratory Exam Respiratory Exam: Clear to Ausculation Bilateral, NORMAL BREATHING PATTERN - Cardiovascular Exam Cardiovascular Exam: REGULAR RHYTHM, RRR, +S1, +S2. absent: Clicks, Gallop, Rubs - GI/Abdominal Exam GI & Abdominal Exam: Soft, Normal Bowel Sounds. absent: Distended, Firm, Guarding, Tenderness - Extremities Exam Extremities Exam: Full ROM, Normal Capillary Refill, Pedal Edema Additional comments: darkened bilateral lower extremities. Right foot heel ulcer noted, no draining or pus drainage appreciated - Neurological Exam Neurological Exam: Alert, Awake, CN II-XII Intact - Skin Skin Exam: Dry, Intact Additional comments: darkened lower extremities Assessment and Plan - Assessment and Plan (Free Text) Assessment: 73 year old male with past medical history of hypothyroidism, diabetes mellitus type II, and peripheral vascular disease presented with right diabetic heel ulcer. Patient was found to have suspicion for osteomyelitis on MRI. Patient to have OR debridement on 10/03 Plan: Right diabetic foot ulcer with suspicion of osteomyelitis -No leukocytosis on admission. Refusing labs -Tmax of 100.3 overnight -Foot x-ray 09/29: Negative for osteomyelitis -Foot MRI 09/30: marrow edema of lateral posterior calcaneous. suspicious for osteomyelitis -Blood culture negative -Wound culture: Klebsiella Oxytoca, MRSA. Klebsiella sensitive to amikacin, ciprofloaxicin, merrem, and zosyn. MRSA sensitive to clindamycin, gentamicin, linezolid, rifampin, and vancomycin. -Continue offloading boot -No antibiotics indicated as per ID. Will reevaluate post OR debridement -NPO past midnight for OR debridement of wound -ID, Dr. Mcwilliams, consulted -Podiatry, Dr. Cosby, consulted Diabetes mellitus type II -HgbA1c: 12.5 -Continue levemir 12 U HS -Continue medium SSI -Accuchecks ACHS Hypothyroidism -Continue home levothyroxine Peripheral vascular disease -Arterial doppler 10/02: normal resting EVELINE, possible left popliteal, trifurcation, and tibial disease. EVELINE might be inaccurate due to calcified vessels -Started lipitor -Will consider aspirin after debridement tomorrow GI prophylaxis: protonix DVT prophylaxis: SCD Patient plan discussed with Dr. Stoll. <Demario Stoll - Last Filed: 10/02/18 16:10> Objective - Vital Signs/Intake and Output Vital Signs (last 24 hours): Temp Pulse Resp BP Pulse Ox 98.4 F 65 18 150/72 97 10/01/18 22:09 10/01/18 22:09 10/01/18 22:09 10/01/18 22:09 10/01/18 22:09 Intake and Output: 10/02/18 10/02/18 06:59 18:59 Intake Total 620 Balance 620 - Medications Medications: Current Medications Acetaminophen (Tylenol 325mg Tab) 650 mg PO Q4H PRN PRN Reason: Pain, Mild (1-3) Atorvastatin Calcium (Lipitor) 20 mg PO DIN [facility] Cadexomer Iodine (Iodosorb) 0 gm TOP DAILY [facility] Insulin Detemir (Levemir) 12 unit SC HS [facility] Last Admin: 10/01/18 21:53 Dose: 12 units Insulin Human Regular (Humulin R Med) 0 units SC ACHS [facility]; Protocol Last Admin: 10/02/18 11:50 Dose: 7 unit Levothyroxine Sodium (Synthroid) 75 mcg PO ACB [facility] Last Admin: 10/02/18 07:58 Dose: 75 mcg Ondansetron HCl (Zofran Inj) 4 mg IVP Q4H PRN PRN Reason: Nausea/Vomiting Pantoprazole Sodium (Protonix Ec Tab) 40 mg PO 0600 [facility] Last Admin: 10/01/18 05:26 Dose: 40 mg - Labs Labs: 09/29/18 15:30 09/29/18 15:30 Attending/Attestation - Attestation I have personally seen and examined this patient.: Yes I have fully participated in the care of the patient.: Yes I have reviewed all pertinent clinical information, including history, physical exam and plan: Yes Notes (Text): 10/02/18 16:01 73 year old male with past medical history of hypothyroidism, diabetes and peripheral vascular disease who presented with right diabetic heel ulcer. Foot xray was negative, however MRI shows marrow edema of lateral posterior calcaneous suspicious for osteomyelitis. ID is following and recommended to monitor off antibiotics while awaiting OR debridement and cultures by podiatry tomorrow. Wound culture and doppler study reviewed as above. Patient has been refusing labs for the past few days. CXR is negative; EKG shows RBBB and LVH, no prior available for comparision. Patient denies any chest pain or shortness of breath. He denies any prior cardiac history. Given history of diabetes, PVD and noncompliance patient is at least moderate risk for procedure tomorrow. Demario Stoll MD Hospitalist.
[2018-10-02] MEDS: CADEXOMER IODINE 0.9% GEL 10G TOP SCH (17:06)
[2018-10-02 18:52] LABS: HEMOGLOBIN 12.4 g/dL (14.0-18.0); MEAN CELL VOLUME 88.6 fl (80.0-105.0); MEAN CORPUSCULAR HEMOGLOBIN 28.8 pg (25.0-35.0); MEAN CORPUSCULAR HGB CONC 32.5 g/dl (31.0-37.0); MEAN PLATELET VOLUME 9.5 fl (7.0-11.0); RBC 4.3 10^6/uL (3.5-6.1); RED CELL DISTRIBUTION WIDTH 13.3 % (11.5-14.5); WHITE BLOOD COUNT 6.5 10^3/uL (4.5-11.0)
[2018-10-02 18:54] LABS: INR 0.99; PARTIAL THROMBOPLASTIN TIME 30.3 Seconds (26.9-38.3)
[2018-10-02 19:45] LABS: BLOOD UREA NITROGEN 25 mg/dL (7-21); GFR NON-AFRICAN AMERICAN > 60
[2018-10-02] MEDS: Insulin Detemir 100 units/ml Vial (Levemir) SC SCH (21:16)
--- NOTE | 2018-10-02 21:28 | PN ---
DATE: 10/02/2018 SUBJECTIVE: The patient is in bed, in no acute distress. PHYSICAL EXAMINATION VITAL SIGNS: On exam temperature is 98, blood pressure is 150/70 and respiratory rate 16. HEENT: Unremarkable. NECK: Supple. LUNGS: Decreased breath sounds. HEART: Normal S1 and S2. ABDOMEN: Soft. LABORATORY DATA: Laboratory examination reveals a white count of 6.6. Chemistries are noted. Microbiology reveals the patient has MRSA, Klebsiella and another Gram-positive cocci. The Klebsiella is reported to be an ESBL Klebsiella and MRSA is also present in another right foot culture. The blood cultures are negative. The patient had a chest x-ray, no active disease. note is reviewed and. The patient is scheduled for OR tomorrow with the deep bone biopsy and cultures. The patient also had an MRI which is consistent with osteomyelitis. Review of orders reveals the patient to be off of antibiotics. ASSESSMENT AND PLAN: This is a 73-year-old diabetic, hypothyroidism, cataract, peripheral vascular disease, admitted with a chronic right heel ulcer, osteomyelitis on MRI. The patient is scheduled for debridement and deep bone culture and biopsy tomorrow. We will continue to hold antibiotics since the patient has no fevers and no white count and has no systemic . We will follow with you. Brandon Mcwilliams MD
[2018-10-03] MEDS: Insulin Reg-MEDIUM-Coverage SC SCH ×5 (02:15→23:47)
[2018-10-03] MEDS: Pantoprazole 40 mg EC Tab PO SCH (06:12)
[2018-10-03 06:41] LABS: MEAN CELL VOLUME 88.6 fl (80.0-105.0); MEAN CORPUSCULAR HEMOGLOBIN 30.2 pg (25.0-35.0); MEAN CORPUSCULAR HGB CONC 34.1 g/dl (31.0-37.0); MEAN PLATELET VOLUME 9.3 fl (7.0-11.0); RBC 4.64 10^6/uL (3.5-6.1); RED CELL DISTRIBUTION WIDTH 13.1 % (11.5-14.5); WHITE BLOOD COUNT 6.1 10^3/uL (4.5-11.0)
[2018-10-03 06:55] LABS: BLOOD UREA NITROGEN 25 mg/dL (7-21); CALCIUM 9.4 mg/dL (8.4-10.5); GFR NON-AFRICAN AMERICAN > 60
[2018-10-03] MEDS ORDERED: Lidocaine 2% Inj (20ml) ONE (07:31)
[2018-10-03] MEDS ORDERED: Propofol 10 mg/ml Inj (20 ML) ONE (07:50)
[2018-10-03] MEDS ORDERED: Midazolam 2 MG/2 ML VIAL ONE ×3 (07:51→08:21)
[2018-10-03] MEDS ORDERED: Bupivacaine 0.5% 50 ML IJ ONE (08:02)
[2018-10-03] MEDS ORDERED: Gentamicin 80 mg in 0.9% NS 80 MG/100 ML BAG IVPB ONE (08:17)
--- NOTE | 2018-10-03 08:49 | PCM.SURG1 ---
Surgeon's Initial Post Op Note - Surgeon's Notes Surgeon: Dr. Gallo DPM Jacquard Fixer: Dr. Maria D Rodríguez PGY1 Type of Anesthesia: IV Sedation, Local Anesthesia Administered By: Dr. Gomez Pre-Operative Diagnosis: Right heel non-healing ulceration Operative Findings: See dicatatio. I: 10 cc of 1:1 mix of 2% lidocaine plain and 0.5% marcaine plain. M: 3-0 Nylon Post-Operative Diagnosis: Same Operation Performed: 1) Right heel wound debridement with Misonix 2) Deep bone culture Specimen/Specimens Removed: Bone from right calcaneus Estimated Blood Loss: EBL {In ML}: 1 Blood Products Given: N/A Drains Used: No Drains Post-Op Condition: Good Date of Surgery/Procedure: 10/03/18 Time of Surgery/Procedure: 08:49
[2018-10-03] MEDS ORDERED: Oxycodone/Acetaminophen 5/325 mg Tab PO PRN ×2 (08:51)
[2018-10-03] MEDS ORDERED: Lactated Ringer's 1,000 ML IV SCH (09:00)
[2018-10-03] MEDS: CADEXOMER IODINE 0.9% GEL 10G TOP SCH (09:00)
[2018-10-03] MEDS ORDERED: Vancomycin 1gm in NS 250ml 1 GM/250 ML BAG IVPB SCH (11:30)
[2018-10-03] MEDS: Levothyroxine 75 MCG TAB PO SCH (12:30)
[2018-10-03] MEDS ORDERED: MEROPENEM 500 MG in NS 500 MG/50 ML BAG IVPB SCH (14:00)
--- NOTE | 2018-10-03 14:52 | CP.PCM.PN ---
<Petty Olson - Last Filed: 10/03/18 14:46> Subjective - Date & Time of Evaluation Date of Evaluation: 10/03/18 Time of Evaluation: 14:46 - Subjective Subjective: Petty Olson, PGY-1, Internal Medicine Progress Note for Dr. Stoll Patient seen and evaluated at bedside. Patient had no acute overnight events. Patient continues to have right heel pain and had debridement of wound today. 12-point ROS was unremarkable except for what was mentioned above. Objective - Vital Signs/Intake and Output Vital Signs (last 24 hours): Temp Pulse Resp BP Pulse Ox 97.6 F 59 L 18 122/61 94 L 10/03/18 09:47 10/03/18 09:47 10/03/18 09:47 10/03/18 09:47 10/03/18 09:47 Intake and Output: 10/03/18 10/03/18 06:59 18:59 Intake Total 660 0 Balance 660 0 - Medications Medications: Current Medications Acetaminophen (Tylenol 325mg Tab) 650 mg PO Q4H PRN PRN Reason: Pain, Mild (1-3) Last Admin: 10/03/18 12:48 Dose: 650 mg Acetaminophen (Tylenol 325mg Tab) 650 mg PO Q4H PRN PRN Reason: Pain, Mild (1-3) Atorvastatin Calcium (Lipitor) 20 mg PO DIN [facility] Last Admin: 10/02/18 17:05 Dose: 20 mg Cadexomer Iodine (Iodosorb) 0 gm TOP DAILY [facility] Last Admin: 10/03/18 09:00 Dose: Not Given Meropenem/Sodium Chloride (Merrem Iv 500 Mg/Ns 50 Ml) 500 mg in 50 mls @ 100 mls/hr IVPB Q8 [facility]; Protocol Stop: 10/03/18 22:29 Vancomycin HCl (Vancomycin 1gm) 1 gm in 250 mls @ 167 mls/hr IVPB DAILY [facility]; Protocol Last Admin: 10/03/18 12:30 Dose: 167 mls/hr Insulin Detemir (Levemir) 18 unit SC HS [facility] Insulin Human Lispro (Humalog) 6 units SC AC [facility] Insulin Human Regular (Humulin R Med) 0 units SC ACHS [facility]; Protocol Last Admin: 10/03/18 12:00 Dose: Not Given Levothyroxine Sodium (Synthroid) 75 mcg PO ACB [facility] Last Admin: 10/03/18 12:30 Dose: 75 mcg Ondansetron HCl (Zofran Inj) 4 mg IVP Q4H PRN PRN Reason: Nausea/Vomiting Oxycodone/Acetaminophen (Percocet 5/325 Mg Tab) 1 tab PO Q4H PRN PRN Reason: Pain, moderate (4-7) Stop: 10/06/18 08:52 Oxycodone/Acetaminophen (Percocet 5/325 Mg Tab) 2 tab PO Q4H PRN PRN Reason: Pain, severe (8-10) Stop: 10/06/18 08:52 Pantoprazole Sodium (Protonix Ec Tab) 40 mg PO 0600 [facility] Last Admin: 10/03/18 06:12 Dose: Not Given - Labs Labs: 10/03/18 06:15 10/03/18 06:15 PT 11.0 SECONDS (9.4-12.5) 10/02/18 18:27 INR 0.99 10/02/18 18:27 APTT 30.3 Seconds (26.9-38.3) 10/02/18 18:27 - Constitutional Appears: Well, Non-toxic, No Acute Distress - Head Exam Head Exam: ATRAUMATIC, NORMAL INSPECTION, NORMOCEPHALIC - Eye Exam Eye Exam: EOMI, PERRL - ENT Exam ENT Exam: Mucous Membranes Moist - Neck Exam Neck Exam: Full ROM - Respiratory Exam Respiratory Exam: Clear to Ausculation Bilateral, NORMAL BREATHING PATTERN - Cardiovascular Exam Cardiovascular Exam: REGULAR RHYTHM, RRR, +S1, +S2. absent: Clicks, Gallop, Rubs - GI/Abdominal Exam GI & Abdominal Exam: Soft, Normal Bowel Sounds. absent: Distended, Firm, Guarding, Tenderness - Extremities Exam Extremities Exam: Full ROM, Normal Capillary Refill, Pedal Edema Additional comments: darkened bilateral lower extremities. Right foot heel ulcer debrided - Neurological Exam Neurological Exam: Alert, Awake, CN II-XII Intact - Skin Skin Exam: Dry, Intact Additional comments: darkened lower extremities Assessment and Plan - Assessment and Plan (Free Text) Assessment: 73 year old male with past medical history of hypothyroidism, diabetes mellitus type II, and peripheral vascular disease presented with right diabetic heel ulcer. Patient was found to have suspicion for osteomyelitis on MRI. Patient had OR debridement on 10/03 Plan: Right diabetic foot ulcer with suspicion of osteomyelitis -No leukocytosis on admission. -Patient has been afebrile -Foot x-ray 09/29: Negative for osteomyelitis -Foot MRI 09/30: marrow edema of lateral posterior calcaneous. suspicious for osteomyelitis -Blood culture negative since 09/29 -Wound culture: Klebsiella Oxytoca, MRSA. Klebsiella sensitive to amikacin, ciprofloaxicin, merrem, and zosyn. MRSA sensitive to clindamycin, gentamicin, linezolid, rifampin, and vancomycin. -Started vancomycin and merrem on 10/03 -Will follow up bone biopsy results for margins Diabetes mellitus type II -HgbA1c: 12.5 -Increased levemir to 18 U -Started lispro 6 U AC -Accuchecks ACHS Hypothyroidism -Continue home levothyroxine Peripheral vascular disease -Arterial doppler 10/02: normal resting EVELINE, possible left popliteal, tr ifurcation, and tibial disease. EVELINE might be inaccurate due to calcified vessels -Continue lipitor -Start aspirin GI prophylaxis: protonix DVT prophylaxis: SCD Patient plan discussed with Dr. Stoll. <Demario Stoll - Last Filed: 10/03/18 15:32> Objective - Vital Signs/Intake and Output Vital Signs (last 24 hours): Temp Pulse Resp BP Pulse Ox 97.6 F 59 L 18 122/61 94 L 10/03/18 09:47 10/03/18 09:47 10/03/18 09:47 10/03/18 09:47 10/03/18 09:47 Intake and Output: 10/03/18 10/03/18 06:59 18:59 Intake Total 660 0 Balance 660 0 - Medications Medications: Current Medications Acetaminophen (Tylenol 325mg Tab) 650 mg PO Q4H PRN PRN Reason: Pain, Mild (1-3) Last Admin: 10/03/18 12:48 Dose: 650 mg Acetaminophen (Tylenol 325mg Tab) 650 mg PO Q4H PRN PRN Reason: Pain, Mild (1-3) Aspirin (Aspirin Chewable) 81 mg PO DAILY [facility] Atorvastatin Calcium (Lipitor) 20 mg PO DIN [facility] Last Admin: 10/02/18 17:05 Dose: 20 mg Cadexomer Iodine (Iodosorb) 0 gm TOP DAILY [facility] Last Admin: 10/03/18 09:00 Dose: Not Given Meropenem/Sodium Chloride (Merrem Iv 500 Mg/Ns 50 Ml) 500 mg in 50 mls @ 100 mls/hr IVPB Q8 [facility]; Protocol Stop: 10/03/18 22:29 Last Admin: 10/03/18 15:05 Dose: 100 mls/hr Vancomycin HCl (Vancomycin 1gm) 1 gm in 250 mls @ 167 mls/hr IVPB DAILY [facility]; Protocol Last Admin: 10/03/18 12:30 Dose: 167 mls/hr Insulin Detemir (Levemir) 18 unit SC HS [facility] Insulin Human Lispro (Humalog) 6 units SC AC [facility] Insulin Human Regular (Humulin R Med) 0 units SC ACHS [facility]; Protocol Last Admin: 10/03/18 12:00 Dose: Not Given Levothyroxine Sodium (Synthroid) 75 mcg PO ACB [facility] Last Admin: 10/03/18 12:30 Dose: 75 mcg Ondansetron HCl (Zofran Inj) 4 mg IVP Q4H PRN PRN Reason: Nausea/Vomiting Oxycodone/Acetaminophen (Percocet 5/325 Mg Tab) 1 tab PO Q4H PRN PRN Reason: Pain, moderate (4-7) Stop: 10/06/18 08:52 Oxycodone/Acetaminophen (Percocet 5/325 Mg Tab) 2 tab PO Q4H PRN PRN Reason: Pain, severe (8-10) Stop: 10/06/18 08:52 Pantoprazole Sodium (Protonix Ec Tab) 40 mg PO 0600 [facility] Last Admin: 10/03/18 06:12 Dose: Not Given - Labs Labs: 10/03/18 06:15 10/03/18 06:15 PT 11.0 SECONDS (9.4-12.5) 10/02/18 18:27 INR 0.99 10/02/18 18:27 APTT 30.3 Seconds (26.9-38.3) 10/02/18 18:27 Attending/Attestation - Attestation I have personally seen and examined this patient.: Yes I have fully participated in the care of the patient.: Yes I have reviewed all pertinent clinical information, including history, physical exam and plan: Yes Notes (Text): 10/03/18 15:29 73 year old male with past medical history of hypothyroidism, diabetes and peripheral vascular disease who presented with right diabetic heel ulcer. Foot xray was negative, however MRI shows marrow edema of lateral posterior calcaneous suspicious for osteomyelitis. Wound culture and doppler study reviewed as above. Patient is s/p right heel debridement and deep bone culture/biopsy; awaiting results. Discussed with ID; will start iv antibiotics vancomycin and meropenem. His levemir is also increased for uncontrolled diabetes and he is added on lispro. is at bedside and updated on hospital course. Demario Stoll MD Hospitalist.
[2018-10-03] MEDS: Insulin Lispro 1 UNITS/0.01 ML SC SCH (17:36)
--- NOTE | 2018-10-03 21:42 | PN ---
DATE: 10/03/2018 SUBJECTIVE: Patient is in bed, in no acute distress. PHYSICAL EXAMINATION VITAL SIGNS: Temperature of 97, blood pressure is 120/60, respiratory rate of 18. HEENT: Unremarkable. NECK: Supple. LUNGS: Decreased breath sounds. HEART: Normal S1 and S2. ABDOMEN: Soft. LABORATORY DATA: Reveals a white count of 6.1. Chemistries reveals a BUN of 25, creatinine of 0.9. Microbiology is noted. Patient has Klebsiella oxytoca, MRSA, Enterococcus. The Klebsiella is ESBL positive. REVIEW OF ORDERS: Patient was taken to the OR, he had debridement of the right heel and bone biopsy of the right heel. Currently now, patient would be started on vancomycin and meropenem. ASSESSMENT AND PLAN: A 73-year-old male who is diabetic, has hypothyroidism, cataract, peripheral vascular disease, admitted with chronic right heel ulcer and osteomyelitis status post debridement today. We will treat the patient with vancomycin and meropenem. Vancomycin is generally recommended for renal function to be given at 25 mg/kg loading dose and 15 mg/kg maintenance. We will start the patient on vancomycin 1 g IV every 12 hours, first dose today and meropenem 1 g IV every 8 hours. Pending bone pathology and bone cultures. We will follow with you. Brandon Mcwilliams MD
[2018-10-03] MEDS: Meropenem IV 1 gm in NS 1 GM/50 ML BAG IVPB SCH (23:50)
[2018-10-03] MEDS: Insulin Detemir 100 units/ml Vial (Levemir) SC SCH (23:51)
[2018-10-04] MEDS: Vancomycin 1gm in NS 250ml 1 GM/250 ML BAG IVPB SCH ×3 (00:02→20:43)
[2018-10-04] MEDS: Pantoprazole 40 mg EC Tab PO SCH ×2 (00:04→06:14)
[2018-10-04] MEDS: Meropenem IV 1 gm in NS 1 GM/50 ML BAG IVPB SCH ×3 (06:14→22:41)
[2018-10-04] MEDS: Levothyroxine 75 MCG TAB PO SCH (08:24)
[2018-10-04] MEDS: Insulin Lispro 1 UNITS/0.01 ML SC SCH ×3 (08:24→17:01)
[2018-10-04] MEDS: Insulin Reg-MEDIUM-Coverage SC SCH ×4 (08:24→22:12)
[2018-10-04] MEDS: CADEXOMER IODINE 0.9% GEL 10G TOP SCH (09:10)
--- NOTE | 2018-10-04 10:07 | CP.PCM.PN ---
<MarcosMaria D - Last Filed: 10/04/18 11:33> Subjective - Date & Time of Evaluation Date of Evaluation: 10/04/18 Time of Evaluation: 10:06 - Subjective Subjective: Podiatry Progress Note: Dr. Gallo/Wilmar 73M patient POD#1 right heel wound debridement with Misonix and deep bone biopsy seen and examined this AM. Patient is resting comfortably and in NAD. Admits to pain to his right heel at this time. He denies nausea/vomiting/fever/shortness of breath. Objective - Vital Signs/Intake and Output Vital Signs (last 24 hours): Temp Pulse Resp BP Pulse Ox 98.2 F 69 20 154/93 H 100 10/04/18 07:00 10/04/18 07:00 10/04/18 07:00 10/04/18 07:00 10/04/18 07:00 Intake and Output: 10/04/18 10/04/18 06:59 18:59 Intake Total 360 240 Balance 360 240 - Medications Medications: Current Medications Acetaminophen (Tylenol 325mg Tab) 650 mg PO Q4H PRN PRN Reason: Pain, Mild (1-3) Last Admin: 10/04/18 09:52 Dose: 650 mg Acetaminophen (Tylenol 325mg Tab) 650 mg PO Q4H PRN PRN Reason: Pain, Mild (1-3) Aspirin (Aspirin Chewable) 81 mg PO DAILY [facility] Last Admin: 10/04/18 09:10 Dose: 81 mg Atorvastatin Calcium (Lipitor) 20 mg PO DIN [facility] Last Admin: 10/03/18 17:37 Dose: 20 mg Cadexomer Iodine (Iodosorb) 0 gm TOP DAILY [facility] Last Admin: 10/04/18 09:10 Dose: 10 gm Meropenem (Merrem Iv 1 Gm Premix) 1 gm in 50 mls @ 100 mls/hr IVPB Q8 [facility]; Protocol Stop: 10/11/18 22:01 Last Admin: 10/04/18 06:14 Dose: 100 mls/hr Vancomycin HCl (Vancomycin 1gm) 1 gm in 250 mls @ 167 mls/hr IVPB Q12H [facility]; Protocol Stop: 10/11/18 20:16 Last Admin: 10/04/18 09:10 Dose: 167 mls/hr Insulin Detemir (Levemir) 18 unit SC HS [facility] Last Admin: 10/03/18 23:51 Dose: 18 units Insulin Human Lispro (Humalog) 6 units SC AC [facility] Last Admin: 10/04/18 08:24 Dose: 6 units Insulin Human Regular (Humulin R Med) 0 units SC ACHS [facility]; Protocol Last Admin: 10/04/18 08:24 Dose: 7 unit Levothyroxine Sodium (Synthroid) 75 mcg PO ACB [facility] Last Admin: 10/04/18 08:24 Dose: 75 mcg Ondansetron HCl (Zofran Inj) 4 mg IVP Q4H PRN PRN Reason: Nausea/Vomiting Oxycodone/Acetaminophen (Percocet 5/325 Mg Tab) 1 tab PO Q4H PRN PRN Reason: Pain, moderate (4-7) Stop: 10/06/18 08:52 Last Admin: 10/04/18 00:01 Dose: 1 tab Oxycodone/Acetaminophen (Percocet 5/325 Mg Tab) 2 tab PO Q4H PRN PRN Reason: Pain, severe (8-10) Stop: 10/06/18 08:52 Pantoprazole Sodium (Protonix Ec Tab) 40 mg PO 0600 [facility] Last Admin: 10/04/18 06:14 Dose: 40 mg - Labs Labs: 10/03/18 06:15 10/03/18 06:15 PT 11.0 SECONDS (9.4-12.5) 10/02/18 18:27 INR 0.99 10/02/18 18:27 APTT 30.3 Seconds (26.9-38.3) 10/02/18 18:27 - Constitutional Appears: Non-toxic, No Acute Distress - Head Exam Head Exam: ATRAUMATIC, NORMOCEPHALIC - Extremities Exam Additional comments: RLE focused exam Vascular: DP/PT palpable, CFT < 3 seconds, TG warm to warm, edema minimal to R heel Ortho: MMT 5/5 Neuro: Gross sensation intact, protective sensation diminished Derm: Ulceration appreciated to R plantar heel measuring approximately 1.5 cm x 1.2 cm x .4 cm with granular base. No draiange, no purulence appreciated, no probe to bone at this time, no malodor. Bone biopsy site suture intact - Neurological Exam Neurological Exam: Alert, Awake, Oriented x3 - Psychiatric Exam Psychiatric exam: Normal Affect, Normal Mood - Skin Skin Exam: Warm Assessment and Plan - Assessment and Plan (Free Text) Assessment: 73M with R heel ulceration POD#1 right heel wound debridement and deep bone biopsy Plan: Patient seen and examined with Dr. [place] foot x-ray: no evidence of OM LE MRI: There is an area of marrow edema on the lateral aspect of the posterior calcaneus. This is suspicious for osteomyelitis. However there is no obvious cortical destruction. The marrow edema could represent a bone bruise or stress response. F/U OR bone biopsy, bone culture, wound culture Toe touch weight bear to forefoot in offloading shoe Local wound care: packing, xeroform, DSD ID recs appreciated <Wellington Urban - Last Filed: 10/06/18 18:17> Objective - Vital Signs/Intake and Output Vital Signs (last 24 hours): Temp Pulse Resp BP Pulse Ox 98.3 F 65 16 136/77 97 10/05/18 06:00 10/05/18 06:00 10/05/18 06:00 10/05/18 06:00 10/05/18 06:00 Intake and Output: 10/06/18 10/06/18 06:59 18:59 Intake Total 620 Balance 620 - Medications Medications: Current Medications Acetaminophen (Tylenol 325mg Tab) 650 mg PO Q4H PRN PRN Reason: Pain, Mild (1-3) Last Admin: 10/05/18 05:59 Dose: 650 mg Acetaminophen (Tylenol 325mg Tab) 650 mg PO Q4H PRN PRN Reason: Pain, Mild (1-3) Aspirin (Aspirin Chewable) 81 mg PO DAILY [facility] Last Admin: 10/06/18 10:00 Dose: Not Given Atorvastatin Calcium (Lipitor) 20 mg PO DIN [facility] Last Admin: 10/05/18 17:55 Dose: 20 mg Glyburide (Micronase) 5 mg PO 0800,1700 [facility] Last Admin: 10/06/18 08:14 Dose: 5 mg Meropenem (Merrem Iv 1 Gm Premix) 1 gm in 50 mls @ 100 mls/hr IVPB Q8 [facility]; Protocol Stop: 10/11/18 22:01 Last Admin: 10/06/18 06:08 Dose: 100 mls/hr Vancomycin HCl (Vancomycin 1gm) 1 gm in 250 mls @ 167 mls/hr IVPB Q12H [facility]; Protocol Stop: 10/11/18 20:16 Last Admin: 10/05/18 20:47 Dose: 167 mls/hr Daptomycin 600 mg/ Sodium (Chloride) 100 mls @ 200 mls/hr IV Q24H [facility]; Protocol Stop: 10/11/18 10:46 Ertapenem 1 gm/ Sodium (Chloride) 50 mls @ 100 mls/hr IVPB Q24H [facility] Insulin Detemir (Levemir) 18 unit SC HS [facility] Last Admin: 10/05/18 22:19 Dose: 18 units Insulin Human Lispro (Humalog) 6 units SC AC [facility] Last Admin: 10/06/18 08:14 Dose: 6 units Insulin Human Regular (Humulin R Med) 0 units SC ACHS [facility]; Protocol Last Admin: 10/06/18 08:13 Dose: 5 unit Levothyroxine Sodium (Synthroid) 75 mcg PO ACB [facility] Last Admin: 10/06/18 08:14 Dose: 75 mcg Metformin HCl (Glucophage) 500 mg PO BID [facility] Last Admin: 10/06/18 10:01 Dose: 500 mg Ondansetron HCl (Zofran Inj) 4 mg IVP Q4H PRN PRN Reason: Nausea/Vomiting Pantoprazole Sodium (Protonix Ec Tab) 40 mg PO 0600 [facility] Last Admin: 10/06/18 06:39 Dose: 40 mg - Labs Labs: 10/06/18 06:30 10/06/18 06:30 PT 11.0 SECONDS (9.4-12.5) 10/02/18 18:27 INR 0.99 10/02/18 18:27 APTT 30.3 Seconds (26.9-38.3) 10/02/18 18:27 Attending/Attestation - Attestation I have personally seen and examined this patient.: Yes I have fully participated in the care of the patient.: Yes I have reviewed all pertinent clinical information, including history, physical exam and plan: Yes
--- NOTE | 2018-10-04 12:29 | CP.PCM.PN ---
<Petty Olson - Last Filed: 10/04/18 12:26> Subjective - Date & Time of Evaluation Date of Evaluation: 10/04/18 Time of Evaluation: 12:26 - Subjective Subjective: Petty Olson, PGY-1, Internal Medicine Progress Note for Dr. Stoll Patient was seen and evaluated at bedside. Patient had no acute overnight events. Patient reported right foot soreness and was not receptive to further questioning. Patient has been upset that he is not getting his home diabetic medications and that he has been getting insulin. He requested to be started on home diabetic medications. He refused labs today. Objective - Vital Signs/Intake and Output Vital Signs (last 24 hours): Temp Pulse Resp BP Pulse Ox 98.2 F 69 20 154/93 H 100 10/04/18 07:00 10/04/18 07:00 10/04/18 07:00 10/04/18 07:00 10/04/18 07:00 Intake and Output: 10/04/18 10/04/18 06:59 18:59 Intake Total 360 240 Balance 360 240 - Medications Medications: Current Medications Acetaminophen (Tylenol 325mg Tab) 650 mg PO Q4H PRN PRN Reason: Pain, Mild (1-3) Last Admin: 10/04/18 09:52 Dose: 650 mg Acetaminophen (Tylenol 325mg Tab) 650 mg PO Q4H PRN PRN Reason: Pain, Mild (1-3) Aspirin (Aspirin Chewable) 81 mg PO DAILY [facility] Last Admin: 10/04/18 10:48 Dose: Not Given Atorvastatin Calcium (Lipitor) 20 mg PO DIN [facility] Last Admin: 10/03/18 17:37 Dose: 20 mg Cadexomer Iodine (Iodosorb) 0 gm TOP DAILY [facility] Last Admin: 10/04/18 09:10 Dose: 10 gm Glyburide (Micronase) 5 mg PO 0800,1700 [facility] Meropenem (Merrem Iv 1 Gm Premix) 1 gm in 50 mls @ 100 mls/hr IVPB Q8 [facility]; Protocol Stop: 10/11/18 22:01 Last Admin: 10/04/18 06:14 Dose: 100 mls/hr Vancomycin HCl (Vancomycin 1gm) 1 gm in 250 mls @ 167 mls/hr IVPB Q12H [facility]; Protocol Stop: 10/11/18 20:16 Last Admin: 10/04/18 09:10 Dose: 167 mls/hr Insulin Detemir (Levemir) 18 unit SC HS [facility] Last Admin: 10/03/18 23:51 Dose: 18 units Insulin Human Lispro (Humalog) 6 units SC AC [facility] Last Admin: 10/04/18 12:00 Dose: 6 units Insulin Human Regular (Humulin R Med) 0 units SC ACHS [facility]; Protocol Last Admin: 10/04/18 12:00 Dose: 5 unit Levothyroxine Sodium (Synthroid) 75 mcg PO ACB [facility] Last Admin: 10/04/18 08:24 Dose: 75 mcg Metformin HCl (Glucophage) 500 mg PO BID [facility] Ondansetron HCl (Zofran Inj) 4 mg IVP Q4H PRN PRN Reason: Nausea/Vomiting Oxycodone/Acetaminophen (Percocet 5/325 Mg Tab) 1 tab PO Q4H PRN PRN Reason: Pain, moderate (4-7) Stop: 10/06/18 08:52 Last Admin: 10/04/18 00:01 Dose: 1 tab Oxycodone/Acetaminophen (Percocet 5/325 Mg Tab) 2 tab PO Q4H PRN PRN Reason: Pain, severe (8-10) Stop: 10/06/18 08:52 Pantoprazole Sodium (Protonix Ec Tab) 40 mg PO 0600 [facility] Last Admin: 10/04/18 06:14 Dose: 40 mg - Labs Labs: 10/03/18 06:15 10/03/18 06:15 PT 11.0 SECONDS (9.4-12.5) 10/02/18 18:27 INR 0.99 10/02/18 18:27 APTT 30.3 Seconds (26.9-38.3) 10/02/18 18:27 - Constitutional Appears: Well, Non-toxic, No Acute Distress - Head Exam Head Exam: ATRAUMATIC, NORMAL INSPECTION, NORMOCEPHALIC - Eye Exam Eye Exam: EOMI Additional comments: limited due to patient's compliance - ENT Exam ENT Exam: Mucous Membranes Moist - Neck Exam Neck Exam: Full ROM, Normal Inspection - Respiratory Exam Additional comments: limited due to patient's compliance - Cardiovascular Exam Additional comments: limited due to patient's compliance - GI/Abdominal Exam Additional comments: limited due to patient's compliance - Extremities Exam Additional comments: right foot wrapped but unable to be evaluated due to patient's compliance - Neurological Exam Neurological Exam: Alert, Awake, CN II-XII Intact, Oriented x3 Assessment and Plan - Assessment and Plan (Free Text) Assessment: 73 year old male with past medical history of hypothyroidism, diabetes mellitus type II, and peripheral vascular disease presented with right diabetic heel ulcer. Patient was found to have suspicion for osteomyelitis on MRI. Patient had OR debridement on 10/03 Plan: Right diabetic foot ulcer with suspicion of osteomyelitis -No leukocytosis on admission. -Patient has been afebrile -Foot x-ray 09/29: Negative for osteomyelitis -Foot MRI 09/30: marrow edema of lateral posterior calcaneous. suspicious for osteomyelitis -Blood culture negative since 09/29 -Wound culture: Klebsiella Oxytoca, MRSA. Klebsiella sensitive to amikacin, ciprofloaxicin, merrem, and zosyn. MRSA sensitive to clindamycin, gentamicin, linezolid, rifampin, and vancomycin. -Continue vancomycin and merrem started on 10/03 -Continue percocet PRN for pain -Follow up bone biopsy results for duration of antibiotics Diabetes mellitus type II -HgbA1c: 12.5 -Continue with levemir 18 U and lispro 6 AC -Continue medium sliding scale insulin -Restarted home glyburide and metformin -Accuchecks ACHS Hypothyroidism -Continue home levothyroxine Peripheral vascular disease -Arterial doppler 10/02: normal resting EVELINE, possible left popliteal, trifurcation, and tibial disease. EVELINE might be inaccurate due to calcified vessels -Continue lipitor -Continue aspirin GI prophylaxis: protonix DVT prophylaxis: SCD Patient plan discussed with Dr. Stoll. <Demario Stoll - Last Filed: 10/04/18 13:49> Objective - Vital Signs/Intake and Output Vital Signs (last 24 hours): Temp Pulse Resp BP Pulse Ox 98.2 F 69 20 154/93 H 100 10/04/18 07:00 10/04/18 07:00 10/04/18 07:00 10/04/18 07:00 10/04/18 07:00 Intake and Output: 10/04/18 10/04/18 06:59 18:59 Intake Total 360 240 Balance 360 240 - Medications Medications: Current Medications Acetaminophen (Tylenol 325mg Tab) 650 mg PO Q4H PRN PRN Reason: Pain, Mild (1-3) Last Admin: 10/04/18 09:52 Dose: 650 mg Acetaminophen (Tylenol 325mg Tab) 650 mg PO Q4H PRN PRN Reason: Pain, Mild (1-3) Aspirin (Aspirin Chewable) 81 mg PO DAILY [facility] Last Admin: 10/04/18 10:48 Dose: Not Given Atorvastatin Calcium (Lipitor) 20 mg PO DIN [facility] Last Admin: 10/03/18 17:37 Dose: 20 mg Cadexomer Iodine (Iodosorb) 0 gm TOP DAILY [facility] Last Admin: 10/04/18 09:10 Dose: 10 gm Glyburide (Micronase) 5 mg PO 0800,1700 [facility] Meropenem (Merrem Iv 1 Gm Premix) 1 gm in 50 mls @ 100 mls/hr IVPB Q8 [facility]; Protocol Stop: 10/11/18 22:01 Last Admin: 10/04/18 06:14 Dose: 100 mls/hr Vancomycin HCl (Vancomycin 1gm) 1 gm in 250 mls @ 167 mls/hr IVPB Q12H [facility]; Protocol Stop: 10/11/18 20:16 Last Admin: 10/04/18 09:10 Dose: 167 mls/hr Insulin Detemir (Levemir) 18 unit SC HS [facility] Last Admin: 10/03/18 23:51 Dose: 18 units Insulin Human Lispro (Humalog) 6 units SC AC [facility] Last Admin: 10/04/18 12:00 Dose: 6 units Insulin Human Regular (Humulin R Med) 0 units SC ACHS [facility]; Protocol Last Admin: 10/04/18 12:00 Dose: 5 unit Levothyroxine Sodium (Synthroid) 75 mcg PO ACB [facility] Last Admin: 10/04/18 08:24 Dose: 75 mcg Metformin HCl (Glucophage) 500 mg PO BID [facility] Ondansetron HCl (Zofran Inj) 4 mg IVP Q4H PRN PRN Reason: Nausea/Vomiting Oxycodone/Acetaminophen (Percocet 5/325 Mg Tab) 1 tab PO Q4H PRN PRN Reason: Pain, moderate (4-7) Stop: 10/06/18 08:52 Last Admin: 10/04/18 00:01 Dose: 1 tab Oxycodone/Acetaminophen (Percocet 5/325 Mg Tab) 2 tab PO Q4H PRN PRN Reason: Pain, severe (8-10) Stop: 10/06/18 08:52 Pantoprazole Sodium (Protonix Ec Tab) 40 mg PO 0600 [facility] Last Admin: 10/04/18 06:14 Dose: 40 mg - Labs Labs: 10/03/18 06:15 10/03/18 06:15 PT 11.0 SECONDS (9.4-12.5) 10/02/18 18:27 INR 0.99 10/02/18 18:27 APTT 30.3 Seconds (26.9-38.3) 10/02/18 18:27 Attending/Attestation - Attestation I have personally seen and examined this patient.: Yes I have fully participated in the care of the patient.: Yes I have reviewed all pertinent clinical information, including history, physical exam and plan: Yes Notes (Text): 10/04/18 13:45 73 year old male with past medical history of hypothyroidism, diabetes and peripheral vascular disease who presented with right diabetic heel ulcer. Foot xray was negative, however MRI shows marrow edema of lateral posterior calcaneous suspicious for osteomyelitis. Wound culture and doppler study reviewed as above. He is on aspirin and statin. He is on iv antibiotics. Patient is s/p right heel debridement and deep bone culture/biopsy; awaiting results. Podiatry and ID are following. Resumed home medications for diabetes as per patient request as he refused to go home on insulin. Patient is very noncompliant often refusing examination and labs. Demario Stoll MD Hospitalist.
[2018-10-04] MEDS: Insulin Detemir 100 units/ml Vial (Levemir) SC SCH (22:12)
--- NOTE | 2018-10-05 00:07 | PN ---
DATE: 10/04/2018 SUBJECTIVE: The patient is seen in bed, in no acute distress, nontoxic. PHYSICAL EXAMINATION: VITAL SIGNS: Temperature is 98, blood pressure is 162/80, respiratory rate of 20. HEENT: Unremarkable. NECK: Supple. LUNGS: Have decreased breath sounds. HEART: Normal S1, S2. ABDOMEN: Soft. LABORATORY EXAMINATION: Reveals the patient to have a white count of 6.1, hemoglobin of 14. Chemistries are noted. Microbiology reveals the foot culture has Klebsiella, MRSA, Enterococcus. Other one has Klebsiella, MRSA and Enterococcus. The culture is from 10/03/2018 which has gram-negative jammie and gram-positive cocci, bone culture. Review of orders reveals the patient to be on meropenem and vancomycin. Pathology report is pending, biopsy of the primary right heel and the bone biopsy. Bone biopsy has no osseous tissue present, no bone was obtained. progress note is reviewed. Dr. Stoll's progress note is reviewed. ASSESSMENT AND PLAN: This is a 73-year-old male, seen earlier this morning in 564, bed 1 with hypothyroidism, cataract, peripheral vascular disease, admitted with chronic right heel ulcer and osteomyelitis by MRI and status post debridement and bone biopsy. Unfortunately, the bone pathology does not show any bone, no bone was obtained. Awaiting for deep tissue culture. Thus far, there are gram-negative jammie and gram-positive cocci. Treated with vancomycin and meropenem. The patient is on metformin at home. Brandon Mcwilliams MD
[2018-10-05] MEDS: Meropenem IV 1 gm in NS 1 GM/50 ML BAG IVPB SCH ×3 (05:30→22:20)
[2018-10-05] MEDS: Pantoprazole 40 mg EC Tab PO SCH (05:31)
[2018-10-05 07:47] VITALS: TEMP 98.3
[2018-10-05] MEDS: Insulin Reg-MEDIUM-Coverage SC SCH ×4 (08:01→22:19)
[2018-10-05] MEDS: Insulin Lispro 1 UNITS/0.01 ML SC SCH ×3 (08:02→17:54)
--- NOTE | 2018-10-05 08:12 | CP.PCM.PN ---
Subjective - Date & Time of Evaluation Date of Evaluation: 10/05/18 Time of Evaluation: 08:11 - Subjective Subjective: Podiatry Progress Note: Dr. Gallo/[place] 73M patient POD#2 right heel wound debridement with Misonix and deep bone biopsy. Patient resting comfortably and in NAD. Patient states that the pain to his right heel has decreased significantly since the day of procedure. He denies any nausea/vomiting/fever/shortness of breath/chest pain. Objective - Vital Signs/Intake and Output Vital Signs (last 24 hours): Temp Pulse Resp BP Pulse Ox 98.3 F 65 16 136/77 97 10/05/18 06:00 10/05/18 06:00 10/05/18 06:00 10/05/18 06:00 10/05/18 06:00 Intake and Output: 10/05/18 10/05/18 06:59 18:59 Intake Total 840 Balance 840 - Medications Medications: Current Medications Acetaminophen (Tylenol 325mg Tab) 650 mg PO Q4H PRN PRN Reason: Pain, Mild (1-3) Last Admin: 10/05/18 05:59 Dose: 650 mg Acetaminophen (Tylenol 325mg Tab) 650 mg PO Q4H PRN PRN Reason: Pain, Mild (1-3) Aspirin (Aspirin Chewable) 81 mg PO DAILY [facility] Last Admin: 10/04/18 10:48 Dose: Not Given Atorvastatin Calcium (Lipitor) 20 mg PO DIN [facility] Last Admin: 10/04/18 17:01 Dose: 20 mg Cadexomer Iodine (Iodosorb) 0 gm TOP DAILY [facility] Last Admin: 10/04/18 09:10 Dose: 10 gm Glyburide (Micronase) 5 mg PO 0800,1700 [facility] Last Admin: 10/04/18 17:03 Dose: 5 mg Meropenem (Merrem Iv 1 Gm Premix) 1 gm in 50 mls @ 100 mls/hr IVPB Q8 [facility]; Protocol Stop: 10/11/18 22:01 Last Admin: 10/05/18 05:30 Dose: 100 mls/hr Vancomycin HCl (Vancomycin 1gm) 1 gm in 250 mls @ 167 mls/hr IVPB Q12H [facility]; Protocol Stop: 10/11/18 20:16 Last Admin: 10/04/18 20:43 Dose: 167 mls/hr Insulin Detemir (Levemir) 18 unit SC HS [facility] Last Admin: 10/04/18 22:12 Dose: 18 units Insulin Human Lispro (Humalog) 6 units SC AC [facility] Last Admin: 10/05/18 08:02 Dose: 6 units Insulin Human Regular (Humulin R Med) 0 units SC ACHS [facility]; Protocol Last Admin: 10/05/18 08:01 Dose: 5 unit Levothyroxine Sodium (Synthroid) 75 mcg PO ACB [facility] Last Admin: 10/04/18 08:24 Dose: 75 mcg Metformin HCl (Glucophage) 500 mg PO BID [facility] Last Admin: 10/04/18 17:03 Dose: 500 mg Ondansetron HCl (Zofran Inj) 4 mg IVP Q4H PRN PRN Reason: Nausea/Vomiting Oxycodone/Acetaminophen (Percocet 5/325 Mg Tab) 1 tab PO Q4H PRN PRN Reason: Pain, moderate (4-7) Stop: 10/06/18 08:52 Last Admin: 10/04/18 00:01 Dose: 1 tab Oxycodone/Acetaminophen (Percocet 5/325 Mg Tab) 2 tab PO Q4H PRN PRN Reason: Pain, severe (8-10) Stop: 10/06/18 08:52 Pantoprazole Sodium (Protonix Ec Tab) 40 mg PO 0600 [facility] Last Admin: 10/05/18 05:31 Dose: 40 mg - Labs Labs: 10/03/18 06:15 10/03/18 06:15 PT 11.0 SECONDS (9.4-12.5) 10/02/18 18:27 INR 0.99 10/02/18 18:27 APTT 30.3 Seconds (26.9-38.3) 10/02/18 18:27 - Constitutional Appears: Non-toxic - Head Exam Head Exam: ATRAUMATIC, NORMOCEPHALIC - Extremities Exam Additional comments: RLE focused exam Vascular: DP/PT palpable, CFT < 3 seconds, TG warm to warm, minimal edema to R heel Ortho: MMT 5/5, mild tenderness to palpation of right heel Neuro: Gross sensation intact, protective sensation diminished Derm: Ulceration appreciated to R plantar heel measuring approximately 1.5 cm x 1.2 cm x .4 cm with granular base. Mild serous drainage, no purulence appreciated, no probe to bone. - Neurological Exam Neurological Exam: Alert, Awake, Oriented x3 - Psychiatric Exam Psychiatric exam: Normal Affect, Normal Mood - Skin Skin Exam: Warm Assessment and Plan - Assessment and Plan (Free Text) Assessment: 73M with R heel ulceration POD#2 right heel wound debridement and deep bone biopsy Plan: Patient seen and examined with Dr. [place] foot x-ray: no evidence of OM LE MRI: There is an area of marrow edema on the lateral aspect of the posterior calcaneus. This is suspicious for osteomyelitis. However there is no obvious cortical destruction. The marrow edema could represent a bone bruise or stress response. OR Bone biopsy; Fragment of fibrofatty and tendinous tissue showing focal fibroblasts. No active inflammation identified, no osseous tissue present OR Bone culture; Klebsiela, MRSA Toe touch weight bear to forefoot in offloading shoe PICC Line ordered, abx per ID recommendations Patient stable for d/c per podiatry standpoint Dressing to be left C/D/I until follow up appointment Patient to f/u in Dr. Gallo in office October 10
[2018-10-05] MEDS: Levothyroxine 75 MCG TAB PO SCH (09:10)
[2018-10-05] MEDS: Vancomycin 1gm in NS 250ml 1 GM/250 ML BAG IVPB SCH ×2 (09:11→20:47)
--- NOTE | 2018-10-05 12:35 | CP.PCM.PN ---
<Petty Olson - Last Filed: 10/05/18 14:02> Subjective - Date & Time of Evaluation Date of Evaluation: 10/05/18 Time of Evaluation: 12:32 - Subjective Subjective: Petty Olson, PGY-1, Internal Medicine Progress Note for Dr. Stoll Patient was seen and evaluated at bedside. Patient had no acute overnight events. Patient denies any foot pain today and was able to ambulate without assistance. Patient was amenable to physical exam today. 12-point ROS was unremarkable except for what was mentioned above. Objective - Vital Signs/Intake and Output Vital Signs (last 24 hours): Temp Pulse Resp BP Pulse Ox 98.3 F 65 16 136/77 97 10/05/18 06:00 10/05/18 06:00 10/05/18 06:00 10/05/18 06:00 10/05/18 06:00 Intake and Output: 10/05/18 10/05/18 06:59 18:59 Intake Total 840 Balance 840 - Medications Medications: Current Medications Acetaminophen (Tylenol 325mg Tab) 650 mg PO Q4H PRN PRN Reason: Pain, Mild (1-3) Last Admin: 10/05/18 05:59 Dose: 650 mg Acetaminophen (Tylenol 325mg Tab) 650 mg PO Q4H PRN PRN Reason: Pain, Mild (1-3) Aspirin (Aspirin Chewable) 81 mg PO DAILY [facility] Last Admin: 10/05/18 09:10 Dose: 81 mg Atorvastatin Calcium (Lipitor) 20 mg PO DIN [facility] Last Admin: 10/04/18 17:01 Dose: 20 mg Cadexomer Iodine (Iodosorb) 0 gm TOP DAILY [facility] Last Admin: 10/04/18 09:10 Dose: 10 gm Glyburide (Micronase) 5 mg PO 0800,1700 [facility] Last Admin: 10/05/18 09:10 Dose: 5 mg Meropenem (Merrem Iv 1 Gm Premix) 1 gm in 50 mls @ 100 mls/hr IVPB Q8 [facility]; Protocol Stop: 10/11/18 22:01 Last Admin: 10/05/18 05:30 Dose: 100 mls/hr Vancomycin HCl (Vancomycin 1gm) 1 gm in 250 mls @ 167 mls/hr IVPB Q12H [facility]; Protocol Stop: 10/11/18 20:16 Last Admin: 10/05/18 09:11 Dose: 167 mls/hr Insulin Detemir (Levemir) 18 unit SC HS [facility] Last Admin: 10/04/18 22:12 Dose: 18 units Insulin Human Lispro (Humalog) 6 units SC AC [facility] Last Admin: 10/05/18 12:11 Dose: 6 units Insulin Human Regular (Humulin R Med) 0 units SC ACHS [facility]; Protocol Last Admin: 10/05/18 12:11 Dose: 5 unit Levothyroxine Sodium (Synthroid) 75 mcg PO ACB [facility] Last Admin: 10/05/18 09:10 Dose: 75 mcg Metformin HCl (Glucophage) 500 mg PO BID [facility] Last Admin: 10/05/18 09:11 Dose: 500 mg Ondansetron HCl (Zofran Inj) 4 mg IVP Q4H PRN PRN Reason: Nausea/Vomiting Oxycodone/Acetaminophen (Percocet 5/325 Mg Tab) 1 tab PO Q4H PRN PRN Reason: Pain, moderate (4-7) Stop: 10/06/18 08:52 Last Admin: 10/04/18 00:01 Dose: 1 tab Oxycodone/Acetaminophen (Percocet 5/325 Mg Tab) 2 tab PO Q4H PRN PRN Reason: Pain, severe (8-10) Stop: 10/06/18 08:52 Pantoprazole Sodium (Protonix Ec Tab) 40 mg PO 0600 [facility] Last Admin: 10/05/18 05:31 Dose: 40 mg - Labs Labs: 10/03/18 06:15 10/03/18 06:15 PT 11.0 SECONDS (9.4-12.5) 10/02/18 18:27 INR 0.99 10/02/18 18:27 APTT 30.3 Seconds (26.9-38.3) 10/02/18 18:27 - Constitutional Appears: Well, Non-toxic, No Acute Distress - Head Exam Head Exam: ATRAUMATIC, NORMAL INSPECTION, NORMOCEPHALIC - Eye Exam Eye Exam: EOMI, PERRL - ENT Exam ENT Exam: Mucous Membranes Moist - Respiratory Exam Respiratory Exam: Clear to Ausculation Bilateral, NORMAL BREATHING PATTERN. absent: Rales (\), Rhonchi, Wheezes - Cardiovascular Exam Cardiovascular Exam: REGULAR RHYTHM, RRR, +S1, +S2 - GI/Abdominal Exam GI & Abdominal Exam: Soft. absent: Tenderness - Extremities Exam Extremities Exam: Full ROM, Normal Capillary Refill Additional comments: right foot wrapped with bandage - Neurological Exam Neurological Exam: Alert, Awake, CN II-XII Intact, Oriented x3 - Psychiatric Exam Psychiatric exam: Normal Affect, Normal Mood - Skin Skin Exam: Dry, Intact Additional comments: darkened lower extremities Assessment and Plan - Assessment and Plan (Free Text) Assessment: 73 year old male with past medical history of hypothyroidism, diabetes mellitus type II, and peripheral vascular disease presented with right diabetic heel ulcer. Patient was found to have suspicion for osteomyelitis on MRI. Patient had OR debridement on 10/03. Patient is to get PICC line on 10/05 Plan: Right diabetic foot ulcer with suspicion of osteomyelitis -No leukocytosis on admission. -Patient has been afebrile -Foot x-ray 09/29: Negative for osteomyelitis -Foot MRI 09/30: marrow edema of lateral posterior calcaneous. suspicious for osteomyelitis -Blood culture negative for 5 days since 09/29 -Wound culture: Klebsiella Oxytoca, MRSA, Enterococcus Faecalis. Klebsiella sensitive to amikacin, ciprofloaxicin, merrem, and zosyn. MRSA sensitive to clindamycin, gentamicin, linezolid, rifampin, and vancomycin -Bone biopsy results: fragments of fibrofatty and tendinous tissue showing focal hemorrhage and focal reactive fibroblasts. No active inflammation. No osseous tissue. -Culture from debridement: klebsiella oxytoca, MRSA. Klebsiella sensitive to amikacin, meropenem, and zosyn. MRSA sensitive to clindamycin, gentamicin, ri fampin, and vancomycin. -Continue vancomycin and merrem started on 10/03 -PICC line to be placed today for discharge with IV daptomycin and ertapenem for total of 6 weeks. Patient will need weekly labs with CBC, CMP, ESR, CRP, CPK Diabetes mellitus type II -HgbA1c: 12.5 -Continue with levemir 18 U and lispro 6 AC -Continue medium sliding scale insulin -Continue home glyburide and metformin -Accuchecks ACHS Hypothyroidism -Continue home levothyroxine Peripheral vascular disease -Arterial doppler 10/02: normal resting EVELINE, possible left popliteal, trifurcation, and tibial disease. EVELINE might be inaccurate due to calcified vessels -Continue lipitor -Continue aspirin GI prophylaxis: protonix DVT prophylaxis: SCD Patient plan discussed with Dr. Stoll. <Demario Stoll - Last Filed: 10/05/18 14:51> Objective - Vital Signs/Intake and Output Vital Signs (last 24 hours): Temp Pulse Resp BP Pulse Ox 98.3 F 65 16 136/77 97 10/05/18 06:00 10/05/18 06:00 10/05/18 06:00 10/05/18 06:00 10/05/18 06:00 Intake and Output: 10/05/18 10/05/18 06:59 18:59 Intake Total 840 Balance 840 - Medications Medications: Current Medications Acetaminophen (Tylenol 325mg Tab) 650 mg PO Q4H PRN PRN Reason: Pain, Mild (1-3) Last Admin: 10/05/18 05:59 Dose: 650 mg Acetaminophen (Tylenol 325mg Tab) 650 mg PO Q4H PRN PRN Reason: Pain, Mild (1-3) Aspirin (Aspirin Chewable) 81 mg PO DAILY [facility] Last Admin: 10/05/18 09:10 Dose: 81 mg Atorvastatin Calcium (Lipitor) 20 mg PO DIN [facility] Last Admin: 10/04/18 17:01 Dose: 20 mg Glyburide (Micronase) 5 mg PO 0800,1700 [facility] Last Admin: 10/05/18 09:10 Dose: 5 mg Meropenem (Merrem Iv 1 Gm Premix) 1 gm in 50 mls @ 100 mls/hr IVPB Q8 [facility]; Protocol Stop: 10/11/18 22:01 Last Admin: 10/05/18 14:08 Dose: 100 mls/hr Vancomycin HCl (Vancomycin 1gm) 1 gm in 250 mls @ 167 mls/hr IVPB Q12H [facility]; Protocol Stop: 10/11/18 20:16 Last Admin: 10/05/18 09:11 Dose: 167 mls/hr Insulin Detemir (Levemir) 18 unit SC HS [facility] Last Admin: 10/04/18 22:12 Dose: 18 units Insulin Human Lispro (Humalog) 6 units SC AC [facility] Last Admin: 10/05/18 12:11 Dose: 6 units Insulin Human Regular (Humulin R Med) 0 units SC ACHS [facility]; Protocol Last Admin: 10/05/18 12:11 Dose: 5 unit Levothyroxine Sodium (Synthroid) 75 mcg PO ACB [facility] Last Admin: 10/05/18 09:10 Dose: 75 mcg Metformin HCl (Glucophage) 500 mg PO BID [facility] Last Admin: 10/05/18 09:11 Dose: 500 mg Ondansetron HCl (Zofran Inj) 4 mg IVP Q4H PRN PRN Reason: Nausea/Vomiting Oxycodone/Acetaminophen (Percocet 5/325 Mg Tab) 1 tab PO Q4H PRN PRN Reason: Pain, moderate (4-7) Stop: 10/06/18 08:52 Last Admin: 10/04/18 00:01 Dose: 1 tab Oxycodone/Acetaminophen (Percocet 5/325 Mg Tab) 2 tab PO Q4H PRN PRN Reason: Pain, severe (8-10) Stop: 10/06/18 08:52 Pantoprazole Sodium (Protonix Ec Tab) 40 mg PO 0600 [facility] Last Admin: 10/05/18 05:31 Dose: 40 mg - Labs Labs: 10/03/18 06:15 10/03/18 06:15 PT 11.0 SECONDS (9.4-12.5) 10/02/18 18:27 INR 0.99 10/02/18 18:27 APTT 30.3 Seconds (26.9-38.3) 10/02/18 18:27 Attending/Attestation - Attestation I have personally seen and examined this patient.: Yes I have fully participated in the care of the patient.: Yes I have reviewed all pertinent clinical information, including history, physical exam and plan: Yes Notes (Text): 10/05/18 14:48 73 year old male with past medical history of hypothyroidism, diabetes and peripheral vascular disease who presented with right diabetic heel ulcer. Foot xray was negative, however MRI shows marrow edema of lateral posterior calcaneous suspicious for osteomyelitis. Wound culture and doppler study reviewed as above. He is on aspirin and statin. He is on iv antibiotics. Patient is s/p right heel debridement and deep bone culture/biopsy; pathology and cultures reviewed as above. Case discussed with ID; plan is for picc line today. Patient will need 4-6 weeks of iv antibiotics with weekly labs. Resumed home medications for diabetes as per patient request as he refused to go home on insulin. Overall prognosis is guarded as patient is very noncompliant. Also often refusing examination and labs. Demario Stoll MD Hospitalist.
--- NOTE | 2018-10-05 14:00 | PN ---
DATE: 10/05/2018 SUBJECTIVE: The patient is in bed, in no acute distress, nontoxic. PHYSICAL EXAMINATION: VITAL SIGNS: Temperature is 98, blood pressure is 130/70, respiratory rate of 18. HEENT: Unremarkable. NECK: Supple. LUNGS: Have decreased breath sounds. HEART: Normal S1, S2. ABDOMEN: Soft. LABORATORY DATA: Laboratory examination reveals white count is 6.1, hemoglobin of 14, platelets are noted. BUN of 25, creatinine 0.9. LFTs are noted. Microbiology reveals a deep tissue culture has MRSA and Klebsiella. The Klebsiella is an ESBL. Pathology report is noted. ASSESSMENT AND PLAN: A 73-year-old male who has diabetes mellitus and hypothyroidism, cataract, peripheral vascular disease, admitted now with chronic ulcer and found to have methicillin-resistant Staphylococcus aureus and extended-spectrum beta-lactamases positive Klebsiella, osteomyelitis; although the tissue they obtained at pathology states that there is no bone seen, on MRI it was positive. He will need 4 to 6 weeks of antibiotics with CBC, SMA-18, C-reactive protein, vancomycin trough levels at least once weekly. Other options is the once daily therapy is requested, for methicillin-resistant Staphylococcus aureus, they may use daptomycin at 6 mg/kg every 24 hours and recommend checking CPK prior to initiation of therapy and once weekly. They also can use ertapenem 1 g intravenous every 24 hours for the extended-spectrum beta-lactamases and will need 4 to 6 weeks of antibiotic therapy. Case discussed with . Brandon Mcwilliams MD
[2018-10-05] MEDS: CADEXOMER IODINE 0.9% GEL 10G TOP SCH (14:04)
[2018-10-05] MEDS: Insulin Detemir 100 units/ml Vial (Levemir) SC SCH (22:19)
[2018-10-05 22:50] VITALS: BP 136/77; PULSE 65; RESP 16; O2SAT 97
--- NOTE | 2018-10-06 03:13 | OP ---
PROCEDURE DATE: 10/03/2018 SURGEON: Edie Gallo DPM CLOTH COLORER: Victorino Rodríguez DPM, PGY-1 ANESTHESIA: IV sedation with local. PREOPERATIVE DIAGNOSIS: Right heel non-healing ulceration. POSTOPERATIVE DIAGNOSIS: Right heel non-healing ulceration. OPERATION PERFORMED: 1. Right heel wound debridement with Misonix. 2. Deep bone culture. INDICATIONS: The patient is a 73-year-old male with the above diagnosis. The patient has exhausted all conservative treatments at this time and now requires surgical intervention. The patient signed the consent after careful explanation of risks, benefits, complications and alternatives for the surgical procedure. No guarantees were given nor implied. N.p.o. status was confirmed prior to taking the patient into the operating room. PREPARATION: The patient was brought to the operating room and kept on his bed in the supine position. Timeout was performed for correct identification of the patient and procedure. At this time, 10 mL of a 1:1 mixture of 2% lidocaine plain and 0.5% Marcaine plain were injected in a local block fashion to the right foot. Induction of IV sedation was given and the right foot was then prepped and draped in a normal sterile manner and procedure began. No tourniquet was used during this procedure. PROCEDURE #1: Right heel wound debridement with Misonix. Attention was directed to the right plantar heel where an ulceration was noted and composed of granular and fibrotic tissue with no visual bone exposure. Mild serous drainage was noted from the wound bed. Mechanical debridement was performed with an Adson pickup and #15 blade to remove all fibrotic and nonviable tissue from the wound margin. Next, using the Misonix debridement probe handle, the device was set to a setting of 7. The ulcer was then excisionally debrided of superficial fibrotic and nonviable tissue. The Misonix probe was then utilized to excise any deeper remaining fibrotic and nonviable tissue until a fresh and healthy bleeding granular base appeared. PROCEDURE #2: Deep bone culture. Attention was then directed to the right heel adjacent to the ulceration where using #15 blade, a 2 cm incision was extended down to the subcutaneous layer down to the level of the bone using a trephine. At the level of the bone, a bone biopsy was taken from the right heel and passed off the table for pathology. A deep culture was then taken at this time. Next, the area was copiously irrigated with Misonix probe handle with normal saline and the mixture of gentamicin. Next, a bone culture sent to pathology at this time. Using 3-0 nylon suture, the biopsy site was closed. Next, the ulceration was packed with 0.25 inch iodoform packing and dressed with the remaining of the packing with DSD, ABD and Nabeel. POSTOPERATIVE CONDITION: The patient tolerated the anesthesia and procedure well and was escorted to the recovery room with all vital signs stable and neurovascular status intact to the right foot. The patient will remain in-house. Podiatry will continue to follow. Upon discharge, the patient will follow up with Dr. Gallo in office. VICTORINO GARCIA Edie Gallo DPM [facility]
[2018-10-06] MEDS: Meropenem IV 1 gm in NS 1 GM/50 ML BAG IVPB SCH (06:08)
[2018-10-06] MEDS: Pantoprazole 40 mg EC Tab PO SCH (06:39)
[2018-10-06 06:57] LABS: HEMOGLOBIN 11.9 g/dL (14.0-18.0); MEAN CORPUSCULAR HGB CONC 32.6 g/dl (31.0-37.0); MEAN PLATELET VOLUME 9.7 fl (7.0-11.0); RBC 4.1 10^6/uL (3.5-6.1); RED CELL DISTRIBUTION WIDTH 13.2 % (11.5-14.5)
[2018-10-06 07:30] LABS: BLOOD UREA NITROGEN 23 mg/dL (7-21); CALCIUM 8.3 mg/dL (8.4-10.5); GFR NON-AFRICAN AMERICAN > 60
[2018-10-06] MEDS: Insulin Reg-MEDIUM-Coverage SC SCH ×2 (08:13→13:06)
[2018-10-06] MEDS: Levothyroxine 75 MCG TAB PO SCH (08:14)
[2018-10-06] MEDS: Insulin Lispro 1 UNITS/0.01 ML SC SCH ×2 (08:14→13:06)
[2018-10-06 08:40] LABS: ALB/GLOB RATIO 1.1 (1.1-1.8); ALBUMIN 3.6 g/dL (3.0-4.8); ALT/SGPT 24 U/L (7-56); AST/SGOT 20 U/L (17-59)
--- NOTE | 2018-10-06 09:22 | RAD ---
Date of service: 10/05/2018 HISTORY: PICC LINE COMPARISON: No prior. TECHNIQUE: 1 view obtained. FINDINGS: LUNGS: No active pulmonary disease. PLEURA: No significant pleural effusion identified, no pneumothorax apparent. CARDIOVASCULAR: Aortic calcification Normal cardiac size. No pulmonary vascular congestion. OSSEOUS STRUCTURES: No significant abnormalities. VISUALIZED UPPER ABDOMEN: Normal. OTHER FINDINGS: None. IMPRESSION: No active disease.
--- NOTE | 2018-10-06 09:39 | PN ---
DATE: 10/06/2018 SUBJECTIVE: The patient is seen in bed, in no acute distress, nontoxic. No fevers and chills. PHYSICAL EXAMINATION: VITAL SIGNS: Temperature is 98, blood pressure 136/70, respiratory rate of 18. HEENT: Unremarkable. NECK: Supple. LUNGS: Decreased breath sounds. HEART: Normal S1 and S2. ABDOMEN: Soft. LABORATORY DATA: Reveals white count of 6.1, hemoglobin of 14, platelets of 297. Chemistry reveals a BUN of 25, creatinine of 0.9. Microbiology is noted. Klebsiella and MRSA, the Klebsiella is ESBL. Deep tissue culture is reviewed. Review of orders reveals the patient to be on vancomycin and meropenem. ASSESSMENT AND PLAN: A 73-year-old male with diabetes mellitus, hypothyroidism, cataract, peripheral vascular disease, admitted with chronic ulcer found to have methicillin-resistant Staphylococcus aureus and extended-spectrum beta-lactamases Klebsiella, osteomyelitis. He will need 4 to 6 weeks of antibiotics, currently on vancomycin and meropenem, if once daily oxygen is needed, may use daptomycin 6 mg/kg IV every 24 hours and ertapenem 1 g IV every 24 hours for the extended-spectrum beta-lactamases and would recommend CBC, SMA-18, sed rate, C-reactive protein, and CPK once weekly. At this time, we will order a vancomycin trough level on today's dose. The patient receives vancomycin at 08:15 this morning. We will order one at 07:15. Vancomycin trough level at 07:15 an hour before. The patient last creatinine is 3.09, we will also order a chemistries for today and a CBC for today. Brandon Mcwilliams MD
--- NOTE | 2018-10-06 10:01 | CP.PCM.PN ---
<MarcosMaria D - Last Filed: 10/06/18 11:58> Subjective - Date & Time of Evaluation Date of Evaluation: 10/06/18 Time of Evaluation: 10:01 - Subjective Subjective: Podiatry Progress Note: Dr. Gallo/Wil[place] 73M patient POD#3 right heel wound debridement with Misonix and deep bone biopsy. Patient resting comfortaly in chair bedside, states that he feels well today. PICC line in place. Dressing clean/dry/intact. present bedside. Denies nausea/vomiting/fever/shortness of breath. Objective - Vital Signs/Intake and Output Vital Signs (last 24 hours): Temp Pulse Resp BP Pulse Ox 98.3 F 65 16 136/77 97 10/05/18 06:00 10/05/18 06:00 10/05/18 06:00 10/05/18 06:00 10/05/18 06:00 Intake and Output: 10/06/18 10/06/18 06:59 18:59 Intake Total 620 Balance 620 - Medications Medications: Current Medications Acetaminophen (Tylenol 325mg Tab) 650 mg PO Q4H PRN PRN Reason: Pain, Mild (1-3) Last Admin: 10/05/18 05:59 Dose: 650 mg Acetaminophen (Tylenol 325mg Tab) 650 mg PO Q4H PRN PRN Reason: Pain, Mild (1-3) Aspirin (Aspirin Chewable) 81 mg PO DAILY [facility] Last Admin: 10/05/18 09:10 Dose: 81 mg Atorvastatin Calcium (Lipitor) 20 mg PO DIN [facility] Last Admin: 10/05/18 17:55 Dose: 20 mg Glyburide (Micronase) 5 mg PO 0800,1700 [facility] Last Admin: 10/06/18 08:14 Dose: 5 mg Meropenem (Merrem Iv 1 Gm Premix) 1 gm in 50 mls @ 100 mls/hr IVPB Q8 [facility]; Protocol Stop: 10/11/18 22:01 Last Admin: 10/06/18 06:08 Dose: 100 mls/hr Vancomycin HCl (Vancomycin 1gm) 1 gm in 250 mls @ 167 mls/hr IVPB Q12H [facility]; Protocol Stop: 10/11/18 20:16 Last Admin: 10/05/18 20:47 Dose: 167 mls/hr Insulin Detemir (Levemir) 18 unit SC HS [facility] Last Admin: 10/05/18 22:19 Dose: 18 units Insulin Human Lispro (Humalog) 6 units SC AC [facility] Last Admin: 10/06/18 08:14 Dose: 6 units Insulin Human Regular (Humulin R Med) 0 units SC ACHS [facility]; Protocol Last Admin: 10/06/18 08:13 Dose: 5 unit Levothyroxine Sodium (Synthroid) 75 mcg PO ACB [facility] Last Admin: 10/06/18 08:14 Dose: 75 mcg Metformin HCl (Glucophage) 500 mg PO BID [facility] Ondansetron HCl (Zofran Inj) 4 mg IVP Q4H PRN PRN Reason: Nausea/Vomiting Pantoprazole Sodium (Protonix Ec Tab) 40 mg PO 0600 [facility] Last Admin: 10/06/18 06:39 Dose: 40 mg - Labs Labs: 10/06/18 06:30 10/06/18 06:30 PT 11.0 SECONDS (9.4-12.5) 10/02/18 18:27 INR 0.99 10/02/18 18:27 APTT 30.3 Seconds (26.9-38.3) 10/02/18 18:27 - Constitutional Appears: Non-toxic, No Acute Distress - Head Exam Head Exam: ATRAUMATIC, NORMOCEPHALIC - Extremities Exam Additional comments: RLE focused exam Vascular: DP/PT palpable, CFT < 3 seconds, TG warm to warm, minimal edema to R heel Ortho: MMT 5/5, mild tenderness to palpation of right heel Neuro: Gross sensation intact, protective sensation diminished Derm: Ulceration appreciated to R plantar heel measuring approximately 1.5 cm x 1.2 cm x .4 cm with granular base. Mild serous drainage, no purulence appreciated, no probe to bone. - Neurological Exam Neurological Exam: Alert, Awake, Oriented x3 - Psychiatric Exam Psychiatric exam: Normal Affect, Normal Mood - Skin Skin Exam: Warm Assessment and Plan - Assessment and Plan (Free Text) Assessment: 73M with R heel ulceration POD#3 right heel wound debridement and deep bone biopsy; stable Plan: Patient seen and examined Discussed with Dr. Wilmar [place] foot x-ray: no evidence of OM LE MRI: There is an area of marrow edema on the lateral aspect of the posterior calcaneus. This is suspicious for osteomyelitis. However there is no obvious cortical destruction. The marrow edema could represent a bone bruise or stress response. OR Bone biopsy; Fragment of fibrofatty and tendinous tissue showing focal fibroblasts. No active inflammation identified, no osseous tissue present OR Bone culture; Klebsiela, MRSA Toe touch weight bear to forefoot in offloading shoe Patient discharged on 4-6 weeks of IV abx per ID Patient stable for d/c per podiatry standpoint Dressing to be left C/D/I until follow up appointment Patient to f/u in Dr. Gallo in office October 10 <Wellington Urban - Last Filed: 10/06/18 18:17> Objective - Vital Signs/Intake and Output Vital Signs (last 24 hours): Temp Pulse Resp BP Pulse Ox 98.3 F 65 16 136/77 97 10/05/18 06:00 10/05/18 06:00 10/05/18 06:00 10/05/18 06:00 10/05/18 06:00 Intake and Output: 10/06/18 10/06/18 06:59 18:59 Intake Total 620 Balance 620 - Labs Labs: 10/06/18 06:30 10/06/18 06:30 PT 11.0 SECONDS (9.4-12.5) 10/02/18 18:27 INR 0.99 10/02/18 18:27 APTT 30.3 Seconds (26.9-38.3) 10/02/18 18:27 Attending/Attestation - Attestation I have personally seen and examined this patient.: Yes I have fully participated in the care of the patient.: Yes I have reviewed all pertinent clinical information, including history, physical exam and plan: Yes
[2018-10-06] MEDS ORDERED: DAPTOmycin 600 MG in Sodium Chloride 0.9% 100 ML IV SCH (10:45)
[2018-10-06] MEDS: Vancomycin 1gm in NS 250ml 1 GM/250 ML BAG IVPB SCH (12:36)
--- NOTE | 2018-10-06 13:47 | CP.PCM.DIS ---
<FarnazandididiPetty - Last Filed: 10/06/18 13:36> Provider - Provider Date of Admission: 09/29/18 17:27 Attending physician: Demario Stoll MD Consults: 09/29/18 20:19 Podiatry Consult Routine Comment: Consulting Provider: Edie Gallo Consulting Physician: Edie Gallo Reason for Consult: Right foot ulcer 09/29/18 20:24 Infectious Disease Consult Routine Comment: Consulting Provider: Brandon Mcwilliams Consulting Physician: Brandon Mcwilliams Reason for Consult: Right foot diabetic ulcer 10/02/18 05:34 Nursing Referral for Wound Care Routine Comment: Physician Instructions: Reason For Exam: met criteria Time Spent in preparation of Discharge (in minutes): 45 Hospital Course - Lab Results Lab Results: Micro Results 09/30/18 10:40 Foot - Right Gram Stain - Final 09/30/18 10:40 Foot - Right Wound Culture - Final Klebsiella Oxytoca Methicillin Resistant S Aureus Enterococcus Faecalis 10/03/18 08:57 Foot - Right Gram Stain - Final 10/03/18 08:57 Foot - Right Wound Culture - Final Klebsiella Oxytoca Methicillin Resistant S Aureus 09/29/18 15:47 Blood Blood Culture - Final NO GROWTH AFTER 5 DAYS 09/29/18 15:47 Blood Gram Stain - Final TEST NOT PERFORMED 09/29/18 15:30 Blood Blood Culture - Final NO GROWTH AFTER 5 DAYS 09/29/18 15:30 Blood Gram Stain - Final TEST NOT PERFORMED 09/29/18 21:30 Foot - Right Gram Stain - Final 09/29/18 21:30 Foot - Right Wound Culture - Final Klebsiella Oxytoca Methicillin Resistant S Aureus Enterococcus Faecalis Most Recent Lab Values WBC 6.0 10^3/uL (4.5-11.0) 10/06/18 06:30 RBC 4.10 10^6/uL (3.5-6.1) 10/06/18 06:30 Hgb 11.9 g/dL (14.0-18.0) L D 10/06/18 06:30 Hct 36.5 % (42.0-52.0) L 10/06/18 06:30 MCV 89.0 fl (80.0-105.0) 10/06/18 06:30 MCH 29.0 pg (25.0-35.0) 10/06/18 06:30 MCHC 32.6 g/dl (31.0-37.0) 10/06/18 06:30 RDW 13.2 % (11.5-14.5) 10/06/18 06:30 Plt Count 250 10^3/uL (120.0-450.0) 10/06/18 06:30 MPV 9.7 fl (7.0-11.0) 10/06/18 06:30 Neut % (Auto) 67.3 % (50.0-68.0) 09/29/18 15:30 Lymph % (Auto) 22.6 % (22.0-35.0) 09/29/18 15:30 Murray % (Auto) 7.5 % (1.0-6.0) H 09/29/18 15:30 Eos % (Auto) 2.0 % (1.5-5.0) 09/29/18 15:30 Baso % (Auto) 0.6 % (0.0-3.0) 09/29/18 15:30 Lymph # (Auto) 1.5 (1.2-3.4) 09/29/18 15:30 Murray # (Auto) 0.5 (0.1-0.6) 09/29/18 15:30 Eos # (Auto) 0.1 (0.0-0.7) 09/29/18 15:30 Baso # (Auto) 0.04 K/mm3 (0.0-2.0) 09/29/18 15:30 Absolute Neuts (auto) 4.42 (1.4-6.5) 09/29/18 15:30 PT 11.0 SECONDS (9.4-12.5) 10/02/18 18:27 INR 0.99 10/02/18 18:27 APTT 30.3 Seconds (26.9-38.3) 10/02/18 18:27 Sodium 134 mmol/L (132-148) 10/06/18 06:30 Potassium 4.6 mmol/L (3.6-5.0) 10/06/18 06:30 Chloride 99 mmol/L (98-107) 10/06/18 06:30 Carbon Dioxide 26 mmol/L (21-33) 10/06/18 06:30 Anion Gap 14 (10-20) 10/06/18 06:30 BUN 23 mg/dL (7-21) H 10/06/18 06:30 Creatinine 0.8 mg/dl (0.8-1.5) 10/06/18 06:30 Est GFR ( Amer) > 60 10/06/18 06:30 Est GFR (Non-Af Amer) > 60 10/06/18 06:30 POC Glucose (mg/dL) 269 mg/dL (65-110) H 10/06/18 10:54 Random Glucose 285 mg/dL (70-110) H 10/06/18 06:30 Hemoglobin A1c 12.5 % (4.2-6.5) H 09/29/18 20:46 Calcium 8.3 mg/dL (8.4-10.5) L 10/06/18 06:30 Total Bilirubin 0.4 mg/dL (0.2-1.3) 10/06/18 06:30 AST 20 U/L (17-59) 10/06/18 06:30 ALT 24 U/L (7-56) 10/06/18 06:30 Alkaline Phosphatase 114 U/L (38-126) 10/06/18 06:30 Total Protein 6.9 g/dL (5.8-8.3) 10/06/18 06:30 Albumin 3.6 g/dL (3.0-4.8) 10/06/18 06:30 Globulin 3.2 gm/dL 10/06/18 06:30 Albumin/Globulin Ratio 1.1 (1.1-1.8) 10/06/18 06:30 Vancomycin Trough 11.9 ug/mL (5.0-10.0) H 10/06/18 07:45 - Hospital Course Hospital Course: Petty Olson, PGY-1, Internal Medicine Discharge Summary for Dr. Stoll 73 year old male with past medical history of hypothyroidism, DM2, and PVD presented with right heel ulcer for the past few moths. He followed with Dr. Gallo who recommended coming to the hospital for further wound care and antibiotics. Patient stated there has been discharge from wound. Patient also had numbness and tingling of right foot. Upon admission, Foot X ray showed no evidence of osteomyelitis. Arterial doppler showed normal resting EVELINE and possible left popliteal, trifurcation, and tibial disease. MRI showed suspicion of osteomyelitis of right posterior calcaneous. Wound culture of right calcaneous showed Klebsiella Oxytoca, MRSA, Enterococcus Faecalis. Klebsiella was sensitive to amikacin, ciprofloaxicin, merrem, and zosyn. MRSA was sensitive to clindamycin, gentamicin, linezolid, rifampin, and vancomycin. Antibiotics were held off as were waiting for bone biopsy prior to starting antibiotics. Debridement by Podiatry was performed in the OR on 10/03. Biopsy specimen showed fragments of fibrofatty and tendinous tissue showing focal hemorrhage and focal reactive fibroblasts. No active inflammation was seen. No osseous tissue was seen. Culture from debridement showed klebsiella oxytoca, MRSA. Klebsiella was sensitive to amikacin, meropenem, and zosyn. MRSA was sensitive to clindamycin, gentamicin, rifampin, and vancomycin. Since no bone was seen on debridement, ID recommended treating infection like osteomyelitis. Vancomycin and merrem were started on 10/03. PICC line was placed yesterday for discharge on daptomycin and ertapenem for a total of 6 weeks of antibiotics. Patient received 4 days of total antibiotics in the hospital. For diabetes mellitus, patient had hemoglobin A1c of 12.5. Patient was started on insulin during this hospital visit but patient refused wanting to start insulin on discharge. As a result home glyburide and metformin were restarted along with levemir 18 U, lispro 6 U, and medium sliding scale insulin. Patient was found to be stable and ready for discharge. Patient was told to f ollow up with primary care doctor in 3-5 days. Patient was told to take antibiotics daily for total of 6 weeks at clinic. Patient was told to get weekly CBC, CMP, ESR, CRP, CPK. Patient was told to return to the emergency department if he had any new or concerning symptoms. This is a brief summary of the events that transpired during this hospital visit. For more information, please refer to hospital documentation. Discharge diagnoses Right calcaneous osteomyelitis Diabetes Mellitus type II Hypothyroidism Peripheral vascular disease - Date & Time of H&P Date of H&P: 09/29/18 Time of H&P: 20:29 Discharge Exam - Head Exam Head Exam: ATRAUMATIC, NORMOCEPHALIC - Eye Exam Eye Exam: EOMI, PERRL - Neck Exam Neck exam: Full Rom, Normal Inspection - Respiratory Exam Respiratory Exam: Clear to PA & Lateral, NORMAL BREATHING PATTERN. absent: Rales, Rhonchi, Wheezes - Cardiovascular Exam Cardiovascular Exam: REGULAR RHYTHM, RRR, +S1, +S2. absent: Tachycardia, Clicks, Gallop, Rubs - GI/Abdominal Exam GI & Abdominal Exam: Normal Bowel Sounds, Soft. absent: Distended, Firm, Guarding, Tenderness - Extremities Exam Extremities exam: full ROM Additional comments: right foot wrapped - Neurological Exam Neurological exam: Alert, CN II-XII Intact, Oriented x3 - Psychiatric Exam Psychiatric exam: Normal Affect, Normal Mood - Skin Skin Exam: Dry, Intact, Normal Color Discharge Plan - Discharge Medications Prescriptions: Aspirin [Aspirin Chewable] 81 mg PO DAILY 30 Days #30 chew Atorvastatin [Lipitor] 20 mg PO DIN 30 Days #30 tab Daptomycin 500 mg IV DAILY 39 Days vial Ertapenem 1gm in NS 50ml [Invanz] 1 gm IV DAILY 39 Days bag - Follow Up Plan Condition: FAIR Disposition: HOME/ ROUTINE Instructions: Methicillin-Resistant Staphylococcus aureus (MRSA), Peripherally- Inserted Central Catheter, Carbohydrate Counting Diet, Preventing Falls, Diabetes and Diet Additional Instructions: Please follow up with your primary care doctor within 3-5 days. Please follow up at clinic to have IV antibiotics daily for the next 6 weeks. Please follow up with weekly labs of CBC, CMP, ESR, CRP, CPK Please take all medications as prescribed. Please return to the emergency department if you have any new or concerning symptoms. Referrals: Yahir Saunders MD [Staff Provider] - <Demario Stoll - Last Filed: 10/06/18 14:37> Provider - Provider Date of Admission: 09/29/18 17:27 Attending physician: Demario Stoll MD Consults: 09/29/18 20:19 Podiatry Consult Routine Comment: Consulting Provider: Edie Gallo Consulting Physician: Edie Gallo Reason for Consult: Right foot ulcer 09/29/18 20:24 Infectious Disease Consult Routine Comment: Consulting Provider: Brandon Mcwilliams Consulting Physician: Brandon Mcwilliams Reason for Consult: Right foot diabetic ulcer 10/02/18 05:34 Nursing Referral for Wound Care Routine Comment: Physician Instructions: Reason For Exam: met criteria Hospital Course - Lab Results Lab Results: Micro Results 09/30/18 10:40 Foot - Right Gram Stain - Final 09/30/18 10:40 Foot - Right Wound Culture - Final Klebsiella Oxytoca Methicillin Resistant S Aureus Enterococcus Faecalis 10/03/18 08:57 Foot - Right Gram Stain - Final 10/03/18 08:57 Foot - Right Wound Culture - Final Klebsiella Oxytoca Methicillin Resistant S Aureus 09/29/18 15:47 Blood Blood Culture - Final NO GROWTH AFTER 5 DAYS 09/29/18 15:47 Blood Gram Stain - Final TEST NOT PERFORMED 09/29/18 15:30 Blood Blood Culture - Final NO GROWTH AFTER 5 DAYS 09/29/18 15:30 Blood Gram Stain - Final TEST NOT PERFORMED 09/29/18 21:30 Foot - Right Gram Stain - Final 09/29/18 21:30 Foot - Right Wound Culture - Final Klebsiella Oxytoca Methicillin Resistant S Aureus Enterococcus Faecalis Most Recent Lab Values WBC 6.0 10^3/uL (4.5-11.0) 10/06/18 06:30 RBC 4.10 10^6/uL (3.5-6.1) 10/06/18 06:30 Hgb 11.9 g/dL (14.0-18.0) L D 10/06/18 06:30 Hct 36.5 % (42.0-52.0) L 10/06/18 06:30 MCV 89.0 fl (80.0-105.0) 10/06/18 06:30 MCH 29.0 pg (25.0-35.0) 10/06/18 06:30 MCHC 32.6 g/dl (31.0-37.0) 10/06/18 06:30 RDW 13.2 % (11.5-14.5) 10/06/18 06:30 Plt Count 250 10^3/uL (120.0-450.0) 10/06/18 06:30 MPV 9.7 fl (7.0-11.0) 10/06/18 06:30 Neut % (Auto) 67.3 % (50.0-68.0) 09/29/18 15:30 Lymph % (Auto) 22.6 % (22.0-35.0) 09/29/18 15:30 Murray % (Auto) 7.5 % (1.0-6.0) H 09/29/18 15:30 Eos % (Auto) 2.0 % (1.5-5.0) 09/29/18 15:30 Baso % (Auto) 0.6 % (0.0-3.0) 09/29/18 15:30 Lymph # (Auto) 1.5 (1.2-3.4) 09/29/18 15:30 Murray # (Auto) 0.5 (0.1-0.6) 09/29/18 15:30 Eos # (Auto) 0.1 (0.0-0.7) 09/29/18 15:30 Baso # (Auto) 0.04 K/mm3 (0.0-2.0) 09/29/18 15:30 Absolute Neuts (auto) 4.42 (1.4-6.5) 09/29/18 15:30 PT 11.0 SECONDS (9.4-12.5) 10/02/18 18:27 INR 0.99 10/02/18 18:27 APTT 30.3 Seconds (26.9-38.3) 10/02/18 18:27 Sodium 134 mmol/L (132-148) 10/06/18 06:30 Potassium 4.6 mmol/L (3.6-5.0) 10/06/18 06:30 Chloride 99 mmol/L (98-107) 10/06/18 06:30 Carbon Dioxide 26 mmol/L (21-33) 10/06/18 06:30 Anion Gap 14 (10-20) 10/06/18 06:30 BUN 23 mg/dL (7-21) H 10/06/18 06:30 Creatinine 0.8 mg/dl (0.8-1.5) 10/06/18 06:30 Est GFR ( Amer) > 60 10/06/18 06:30 Est GFR (Non-Af Amer) > 60 10/06/18 06:30 POC Glucose (mg/dL) 269 mg/dL (65-110) H 10/06/18 10:54 Random Glucose 285 mg/dL (70-110) H 10/06/18 06:30 Hemoglobin A1c 12.5 % (4.2-6.5) H 09/29/18 20:46 Calcium 8.3 mg/dL (8.4-10.5) L 10/06/18 06:30 Total Bilirubin 0.4 mg/dL (0.2-1.3) 10/06/18 06:30 AST 20 U/L (17-59) 10/06/18 06:30 ALT 24 U/L (7-56) 10/06/18 06:30 Alkaline Phosphatase 114 U/L (38-126) 10/06/18 06:30 Total Protein 6.9 g/dL (5.8-8.3) 10/06/18 06:30 Albumin 3.6 g/dL (3.0-4.8) 10/06/18 06:30 Globulin 3.2 gm/dL 10/06/18 06:30 Albumin/Globulin Ratio 1.1 (1.1-1.8) 10/06/18 06:30 Vancomycin Trough 11.9 ug/mL (5.0-10.0) H 10/06/18 07:45 Attending/Attestation - Attestation I have personally seen and examined this patient.: Yes I have fully participated in the care of the patient.: Yes I have reviewed all pertinent clinical information, including history, physical exam and plan: Yes Notes (Text): 10/06/18 14:32 73 year old male with past medical history of hypothyroidism, diabetes and peripheral vascular disease who presented with right diabetic heel ulcer. Foot xray was negative, however MRI shows marrow edema of lateral posterior calcaneous suspicious for osteomyelitis. Wound culture and doppler study reviewed as above. He is on aspirin and statin. He was on iv antibiotics. Patient is s/p right heel debridement and deep bone culture/biopsy; pathology and cultures reviewed as above with ID. Picc line was placed and patient will nee 6 weeks of iv antibiotics (daptomycin and ertapenem) with weekly labs (CBC, CMP, ESR, CRP, CPK). Resumed home medications for diabetes as per patient request as he refused to go home on insulin despite elevated A1c level. Overall prognosis is guarded as patient is very noncompliant. Also often refusing examination and labs. Seen by PT but refused BONITA. Patient is discharged home to follow up with PMD and podiatry. Follow up with infusion center for iv antibiotics and weekly labs. Medication compliance and follow up compliance strongly advised. Demario Stoll MD Hospitalist.
== END 2018-10-06 14:26 | disposition home or self-care (01) | DRG 623 ==
LOC: ED 13:58 → ERH 17:27 → 5RNO 22:21
PROVIDERS: ADMIT Internal Medicine; ATTEND Internal Medicine
PROC: 0JBQ0ZZ Excision of Right Foot Subcutaneous Tissue and Fascia, Open Approach (ICD-10-PCS; principal; 2018-10-03 07:45)
PROC: 0QBL0ZX Excision of Right Tarsal, Open Approach, Diagnostic (ICD-10-PCS; 2018-10-03 07:45)
PROC: 02HV33Z Insertion of Infusion Device into Superior Vena Cava, Percutaneous Approach (ICD-10-PCS; 2018-10-05)
PROC: 3E04329 Introduction of Other Anti-infective into Central Vein, Percutaneous Approach (ICD-10-PCS; 2018-10-05)
DX: E11.621 Type 2 diabetes mellitus with foot ulcer (principal); L97.419 Non-pressure chronic ulcer of right heel and midfoot with unspecified severity; M86.8X7 Other osteomyelitis, ankle and foot; E11.69 Type 2 diabetes mellitus with other specified complication; E11.42 Type 2 diabetes mellitus with diabetic polyneuropathy; E11.51 Type 2 diabetes mellitus with diabetic peripheral angiopathy without gangrene; E11.65 Type 2 diabetes mellitus with hyperglycemia; B95.2 Enterococcus as the cause of diseases classified elsewhere; B95.62 Methicillin resistant Staphylococcus aureus infection as the cause of diseases classified elsewhere; B96.1 Klebsiella pneumoniae [K. pneumoniae] as the cause of diseases classified elsewhere; E03.9 Hypothyroidism, unspecified; Z79.84 Long term (current) use of oral hypoglycemic drugs; Z91.19 Patient's noncompliance with other medical treatment and regimen